=== PATIENT | female | born 1945 | race Caucasian/White ===

== ENCOUNTER 2016-11-01 00:54 | Emergency (ER) | payer MEDICARE, OTHER ==
[2016-11-01 01:01] VITALS: RESP 18
[2016-11-01] MEDS ORDERED: SODIUM CHLORIDE 0.9% 1,000 ML IV STA ×2 (01:19→03:03)
--- NOTE | 2016-11-01 01:21 | ED ---
General Adult HPI - General Chief complaint: Vaginal Bleeding Stated complaint: Vaginal Bleeding Time Seen by Provider: 11/01/16 01:05 Source: patient, RN notes reviewed Mode of arrival: ambulatory Limitations: no limitations - History of Present Illness Initial comments: Patient is a 71-year-old female who presents emergency room today with a chief complaint of vaginal bleeding over the last 4 days. She does admit that she's been having some light spotting. She states she's been changing 2 pads per day. States the bleeding is new she's not had any issues before. Patient admits that she was feeling lightheaded dizzy and is here recent for coming here tonight. Patient does admit to intermittent pain right side of the abdomen ever since having a tubal ligation approximate 40 years ago. Patient does admit that she's currently being treated for urinary tract infection. She states symptoms of itching and burning and dysuria have improved. Patient denies any other complaints or symptoms. Patient denies any recent fever, chills , shortness of breath, chest pain, back pain, nausea or vomiting, numbness or tingling, hematuria, constipation or diarrhea, headaches or visual changes, or any other complaints. - Related Data Home Medications Medication Instructions Recorded Confirmed Aspirin 325 mg PO Q72H 02/17/16 11/01/16 Aspirin EC [Ecotrin Low Dose] 81 mg PO DAILY 11/01/16 11/01/16 Nitrofurantoin Monohyd/M-Cryst 100 mg PO Q12HR 11/01/16 11/01/16 [Macrobid] Allergies Allergy/AdvReac Type Severity Reaction Status Date / Time lactose Allergy Unknown Verified 11/01/16 01:02 levofloxacin [From Levaquin] Allergy Unknown Verified 11/01/16 01:02 milk Allergy Unknown Verified 11/01/16 01:02 mold Allergy Unknown Verified 11/01/16 01:02 Penicillins Allergy Unknown Verified 11/01/16 01:02 soy Allergy Unknown Verified 11/01/16 01:02 sulfamethoxazole Allergy Unknown Verified 11/01/16 01:02 [From Bactrim] trimethoprim [From Bactrim] Allergy Unknown Verified 11/01/16 01:02 codeine AdvReac Unknown Verified 11/01/16 01:02 Review of Systems ROS Statement: Those systems with pertinent positive or pertinent negative responses have been documented in the HPI. ROS Other: All systems not noted in ROS Statement are negative. Past Medical History Past Medical History: Chest Pain / Angina Additional Past Medical History / Comment(s): angina History of Any Multi-Drug Resistant Organisms: None Reported Past Surgical History: Appendectomy, Section, Orthopedic Surgery, Tonsillectomy Additional Past Surgical History / Comment(s): cataract Past Psychological History: No Psychological Hx Reported Smoking Status: Never smoker Past Alcohol Use History: None Reported Past Drug Use History: None Reported General Exam - General Exam Comments Initial Comments: General: The patient is awake and alert, in no distress, and does not appear acutely ill. Eye: Pupils are equal, round and reactive to light, extra-ocular movements are intact. No nystagmus. There is normal conjunctiva bilaterally. No signs of icterus. Ears, nose, mouth and throat: There are moist mucous membranes and no oral lesions. Neck: The neck is supple, there is no tenderness or JVD. Cardiovascular: There is a regular rate and rhythm. No murmur, rub or gallop is appreciated. Respiratory: Lungs are clear to auscultation, respirations are non-labored, breath sounds are equal. No wheezes, stridor, rales, or rhonchi. Gastrointestinal: Soft, non-distended, non-tender abdomen without masses or organomegaly noted. There is no rebound or guarding present. No CVA tenderness. Bowel sounds are unremarkable. Musculoskeletal: Normal ROM, no tenderness. Strength 5/5. Sensation intact. Pulses equal bilaterally 2+. Neurological: A&O x 3. CN II-XII intact, There are no obvious motor or sensory deficits. Coordination appears grossly intact. Speech is normal. Skin: Skin is warm and dry and no rashes or lesions are noted. Psychiatric: Cooperative, appropriate mood & affect, normal judgment. Limitations: no limitations Course Vital Signs 11/01/16 11/01/16 00:58 02:42 Temperature 98 F 98.8 F Pulse Rate 88 77 Respiratory 18 18 Rate Blood Pressure 171/70 142/66 O2 Sat by Pulse 100 98 Oximetry Medical Decision Making - Medical Decision Making Patient's labs been reviewed. Patient's also does show mass versus fibroid. Case discussed with Dr Hartman. Results were discussed with patient. Patient feeling much better after fluids given here in the emergency room. Patient will be discharged home. She is advised to follow-up with the [facility] tomorrow. Advised return here to emergency room if any symptoms increase or worsen or for any other concerns. - Lab Data Result diagrams: 11/01/16 01:11/01/16 01:29 Lab Results 11/01/16 11/01/16 11/01/16 Range/Units 01: 01: 01:29 WBC 6.3 (3.8-10.6) k/uL RBC 4.00 (3.80-5.40) m/uL Hgb 14.0 (11.4-16.0) gm/dL Hct 38.6 (34.0-46.0) % MCV 96.3 (80.0-100.0) fL MCH 35.0 (25.0-35.0) pg MCHC 36.4 (31.0-37.0) g/dL RDW 13.1 (11.5-15.5) % Plt Count 229 (150-450) k/uL Neutrophils % 62 % Lymphocytes % 24 % Monocytes % 6 % Eosinophils % 3 % Basophils % 2 % Neutrophils # 3.9 (1.3-7.7) k/uL Lymphocytes # 1.5 (1.0-4.8) k/uL Monocytes # 0.4 (0-1.0) k/uL Eosinophils # 0.2 (0-0.7) k/uL Basophils # 0.1 (0-0.2) k/uL PT 10.4 (9.0-12.0) sec INR 1.0 (<1.1) APTT 26.0 (22.0-30.0) sec Sodium 125 L (137-145) mmol/L Potassium 4.3 (3.5-5.1) mmol/L Chloride 89 L (98-107) mmol/L Carbon Dioxide 27 (22-30) mmol/L Anion Gap 9 mmol/L BUN 17 (7-17) mg/dL Creatinine 0.80 (0.52-1.04) mg/dL Est GFR (MDRD) Af Amer >60 (>60 ml/min/1.73 sqM) Est GFR (MDRD) Non-Af >60 (>60 ml/min/1.73 sqM) Glucose 91 (74-99) mg/dL Calcium 9.6 (8.4-10.2) mg/dL Total Bilirubin 0.5 (0.2-1.3) mg/dL AST 38 H (14-36) U/L ALT 33 (9-52) U/L Alkaline Phosphatase 37 L (38-126) U/L Troponin I (0.000-0.034) ng/mL Total Protein 7.8 (6.3-8.2) g/dL Albumin 4.5 (3.5-5.0) g/dL Urine Color Urine Appearance (Clear) Urine pH (5.0-8.0) Ur Specific [place] (1.001-1.035) Urine Protein (Negative) Urine Glucose (UA) (Negative) Urine Ketones (Negative) Urine Blood (Negative) Urine Nitrite (Negative) Urine Bilirubin (Negative) Urine Urobilinogen (<2.0) mg/dL Ur Leukocyte Esterase (Negative) Urine RBC (0-5) /hpf Urine WBC (0-5) /hpf 11/01/16 11/01/16 Range/Units 01:29 01:29 WBC (3.8-10.6) k/uL RBC (3.80-5.40) m/uL Hgb (11.4-16.0) gm/dL Hct (34.0-46.0) % MCV (80.0-100.0) fL MCH (25.0-35.0) pg MCHC (31.0-37.0) g/dL RDW (11.5-15.5) % Plt Count (150-450) k/uL Neutrophils % % Lymphocytes % % Monocytes % % Eosinophils % % Basophils % % Neutrophils # (1.3-7.7) k/uL Lymphocytes # (1.0-4.8) k/uL Monocytes # (0-1.0) k/uL Eosinophils # (0-0.7) k/uL Basophils # (0-0.2) k/uL PT (9.0-12.0) sec INR (<1.1) APTT (22.0-30.0) sec Sodium (137-145) mmol/L Potassium (3.5-5.1) mmol/L Chloride (98-107) mmol/L Carbon Dioxide (22-30) mmol/L Anion Gap mmol/L BUN (7-17) mg/dL Creatinine (0.52-1.04) mg/dL Est GFR (MDRD) Af Amer (>60 ml/min/1.73 sqM) Est GFR (MDRD) Non-Af (>60 ml/min/1.73 sqM) Glucose (74-99) mg/dL Calcium (8.4-10.2) mg/dL Total Bilirubin (0.2-1.3) mg/dL AST (14-36) U/L ALT (9-52) U/L Alkaline Phosphatase (38-126) U/L Troponin I <0.012 (0.000-0.034) ng/mL Total Protein (6.3-8.2) g/dL Albumin (3.5-5.0) g/dL Urine Color Light Yellow Urine Appearance Clear (Clear) Urine pH 6.5 (5.0-8.0) Ur Specific [place] 1.001 (1.001-1.035) Urine Protein Negative (Negative) Urine Glucose (UA) Negative (Negative) Urine Ketones Negative (Negative) Urine Blood Moderate H (Negative) Urine Nitrite Negative (Negative) Urine Bilirubin Negative (Negative) Urine Urobilinogen <2.0 (<2.0) mg/dL Ur Leukocyte Esterase Negative (Negative) Urine RBC <1 (0-5) /hpf Urine WBC <1 (0-5) /hpf Disposition Clinical Impression: Vaginal bleeding Disposition: HOME SELF-CARE Condition: Stable Instructions: Dysfunctional Uterine Bleeding (ED) Additional Instructions: Please follow-up the family doctor or [facility] tomorrow. Please return to emergency room if any symptoms increase or worsen or for any other concerns. Referrals: Mekhi Ames MD [Primary Care Provider] - 1-2 days Claudine Navarro DO [Doctor of Osteopathic Medicine] - 1-2 days Time of Disposition: 03:04
[2016-11-01 01:48] LABS: Basophils # (A) 0.1 k/uL (0-0.2); Basophils % (A) 2 %; CH 33.1; CHCM 34.5; Eosinophils # (A) 0.2 k/uL (0-0.7); Eosinophils % (A) 3 %; HCT 38.6 % (34.0-46.0); HDW 2.08; Luc # (Auto) 0.16; Luc % (Auto) 3; Lymphocytes # (A) 1.5 k/uL (1.0-4.8); Lymphocytes % (A) 24 %; MCHC 36.4 g/dL (31.0-37.0); MCV 96.3 fL (80.0-100.0); Mean Platelet Volume 7.3; Monocytes # (A) 0.4 k/uL (0-1.0); Monocytes % (A) 6 %; Neutrophils # (A) 3.9 k/uL (1.3-7.7); Neutrophils % (A) 62 %; RDW 13.1 % (11.5-15.5); WBC 6.3 k/uL (3.8-10.6); WBC (Perox) 6.23
[2016-11-01 01:56] LABS: Appearance,Urine Clear (Clear); Bilirubin,Urine Negative (Negative); Glucose,Urine (UA) Negative (Negative); Ketones,Urine Negative (Negative); Leukocyte Esterase,Urine Negative (Negative); Nitrite,Urine Negative (Negative); PH, Urine 6.5 (5.0-8.0); Particle Count 271; Protein,Urine Negative (Negative); RBC,Urine <1 /hpf (0-5); Specific Gravity,Urine 1.001 (1.001-1.035); UA Billing (MACRO vs. MICRO) MICRO; Urobilinogen,Urine <2.0 mg/dL (<2.0); WBC,Urine <1 /hpf (0-5)
[2016-11-01 01:57] LABS: Prothrombin Time 10.4 sec (9.0-12.0)
[2016-11-01 02:05] LABS: ALT 33 U/L (9-52); AST 38 U/L (14-36); Alkaline Phosphatase 37 U/L (38-126); Anion Gap 9 mmol/L; Blood Urea Nitrogen 17 mg/dL (7-17); Calcium 9.6 mg/dL (8.4-10.2); Carbon Dioxide 27 mmol/L (22-30); Chloride 89 mmol/L (98-107); Glucose 91 mg/dL (74-99); Non-African American GFR(MDRD) >60 (>60 ml/min/1.73 sqM); Potassium 4.3 mmol/L (3.5-5.1); Sodium 125 mmol/L (137-145); Total Bilirubin 0.5 mg/dL (0.2-1.3); Total Protein 7.8 g/dL (6.3-8.2)
--- NOTE | 2016-11-01 02:48 | US ---
EXAM: US Pelvis, Transabdominal and Transvaginal CLINICAL HISTORY: Reason: bleeding TECHNIQUE: Real-time transabdominal and transvaginal pelvic ultrasound (complete) with image documentation. Transvaginal imaging was used for better evaluation of the endometrium and adnexa. COMPARISON: No relevant prior studies available. FINDINGS: Uterus/cervix: Uterus: 8.7 x 4.0 x 4.0 cm. Endometrial complex is not well visualized. There appears to be complex fluid distention of the endometrium cavity with thinning of the myometrium. Findings may represent an underlying endometrial process and/or cervical lesion. Focal more echogenic lesion is seen posteriorly measuring 1.9 x 1.2 x 1.5 cm which may represent an endometrial polyp, mass or fibroid. Right ovary: Not visualized. Left ovary: Not visualized. Free fluid: No free fluid. Bladder: Unremarkable. IMPRESSION: Endometrial complex is not well visualized. There appears to be complex fluid distention of the endometrium cavity with thinning of the myometrium. Findings may represent an underlying endometrial process and/or cervical lesion. Focal more echogenic lesion is seen posteriorly measuring 1.9 x 1.2 x 1.5 cm which may represent an endometrial polyp, mass or fibroid.
[2016-11-01 04:14] VITALS: BP 139/64; PULSE 78; TEMP 98
== END 2016-11-01 04:14 | disposition home or self-care (01) ==
LOC: EC 00:54
DX: N93.9 Abnormal uterine and vaginal bleeding, unspecified (principal); N39.0 Urinary tract infection, site not specified; R42 Dizziness and giddiness; R10.9 Unspecified abdominal pain; Z79.82 Long term (current) use of aspirin; Z88.0 Allergy status to penicillin; Z88.1 Allergy status to other antibiotic agents; Z88.2 Allergy status to sulfonamides; Z88.8 Allergy status to other drugs, medicaments and biological substances
CPT/HCPCS: 36415; 76830; 80053; 81001; 84484; 85025; 85610; 85730; 87086; 93005; 96360; 96361; 99284

== ENCOUNTER 2016-11-29 13:55 | Observation (INO) | payer MEDICARE, OTHER ==
[2016-11-29] MEDS ORDERED: ASPIRIN 81 MG CHEW PO STA (16:19)
[2016-11-29] MEDS ORDERED: NITROGLYCERIN OINT 1 INCH/GM PACKET TOPICAL STA (16:19)
--- NOTE | 2016-11-29 16:22 | ED ---
General Adult HPI - General Chief complaint: Chest Pain Stated complaint: Chest Pain Time Seen by Provider: 11/29/16 16:13 Source: patient, RN notes reviewed Mode of arrival: wheelchair Limitations: no limitations - History of Present Illness Initial comments: Patient is a pleasant 71-year-old female presenting to the emergency Department with chest discomfort. Symptoms have been intermittent over the past 3 weeks. Discomfort is currently resolved. Patient has pressure in her chest with some radiation, numbness to left arm. Symptoms are not necessarily exertional. Patient does have some associated nausea. No dyspnea or diaphoresis. Patient has had similar symptoms previously associated with cardiac problems. - Related Data Home Medications Medication Instructions Recorded Confirmed Aspirin EC [Ecotrin Low Dose] 81 mg PO DAILY 11/01/16 11/29/16 Calcium Carbonate [Calcium] 600 mg PO DAILY 11/29/16 11/29/16 Ferrous Sulfate [Slow Fe] 142 mg PO DAILY 11/29/16 11/29/16 Flaxseed Oil 1,000 mg PO DAILY 11/29/16 11/29/16 Magnesium 200 mg PO DAILY 11/29/16 11/29/16 Multivitamins, Thera [Multivitamin 1 tab PO DAILY 11/29/16 11/29/16 (formulary)] Vitamin B Complex 1 cap PO DAILY 11/29/16 11/29/16 Allergies Allergy/AdvReac Type Severity Reaction Status Date / Time latex Allergy Dyspnea/Itc Verified 11/29/16 16:04 rose mold Allergy Dyspnea/Rapid Verified 11/29/16 16:04 Heart Rate sulfamethoxazole Allergy Dyspnea Verified 11/29/16 16:04 [From Bactrim] trimethoprim [From Bactrim] Allergy Dyspnea Verified 11/29/16 16:04 amoxicillin [From Augmentin] AdvReac Dizziness Verified 11/29/16 16:04 ampicillin AdvReac Rapid Verified 11/29/16 16:04 Heart Rate casein AdvReac Vertigo/Ear Verified 11/29/16 16:04 Aches clavulanic acid AdvReac Dizziness Verified 11/29/16 16:04 [From Augmentin] codeine AdvReac Rapid Verified 11/29/16 16:04 Heart Rate/Migraine cortisone AdvReac Rapid Verified 11/29/16 16:04 Heart Rate/Migraine doxycycline AdvReac Rapid Verified 11/29/16 16:04 Heart Rate erythromycin base AdvReac Weakness Verified 11/29/16 16:04 lactose AdvReac Vertigo/Ear Verified 11/29/16 16:04 Aches levofloxacin [From Levaquin] AdvReac Hallucinati Verified 11/29/16 16:04 ons milk AdvReac Vertigo/Ear Verified 11/29/16 16:04 Aches naproxen [From Aleve] AdvReac Rapid Verified 11/29/16 16:04 Heart Rate Penicillins AdvReac Rapid Verified 11/29/16 16:04 Heart Rate soy AdvReac Diarrhea Verified 11/29/16 16:04 [id number] Reductase AdvReac Jaundice Verified 11/29/16 16:04 Inhibitor sulphites Allergy Dyspnea/Itc Uncoded 11/29/16 16:02 rose "Most Antibiotics" AdvReac Rapid Uncoded 11/29/16 16:02 Heart Rate Review of Systems ROS Statement: Those systems with pertinent positive or pertinent negative responses have been documented in the HPI. ROS Other: All systems not noted in ROS Statement are negative. Constitutional: Denies: fever Eyes: Denies: eye pain ENT: Denies: ear pain Respiratory: Denies: cough Cardiovascular: Reports: chest pain Endocrine: Denies: fatigue Gastrointestinal: Denies: abdominal pain Genitourinary: Denies: dysuria Musculoskeletal: Denies: back pain Skin: Denies: rash Past Medical History Past Medical History: Chest Pain / Angina Additional Past Medical History / Comment(s): angina History of Any Multi-Drug Resistant Organisms: None Reported Past Surgical History: Appendectomy, Section, Orthopedic Surgery, Tonsillectomy Additional Past Surgical History / Comment(s): cataract Past Psychological History: No Psychological Hx Reported Smoking Status: Never smoker Past Alcohol Use History: None Reported Past Drug Use History: None Reported General Exam Limitations: no limitations General appearance: alert, in no apparent distress Head exam: Present: atraumatic Eye exam: Present: normal appearance, PERRL ENT exam: Present: normal oropharynx Neck exam: Present: normal inspection Respiratory exam: Present: normal lung sounds bilaterally. Absent: chest wall tenderness Cardiovascular Exam: Present: regular rate, normal rhythm Expanded Peripheral pulses: 2+: Radial (R), Radial (L), Dorsalis Pedis (R), Dorsalis Pedis (L) GI/Abdominal exam: Present: soft. Absent: tenderness Extremities exam: Present: normal inspection Neurological exam: Present: alert Psychiatric exam: Present: normal affect, normal mood Skin exam: Absent: normal color Course Vital Signs 11/29/16 11/29/16 11/29/16 14:00 15:39 16:51 Temperature 97.5 F L Pulse Rate 81 79 84 Respiratory 18 18 18 Rate Blood Pressure 140/63 148/76 134/74 O2 Sat by Pulse 99 99 100 Oximetry 11/29/16 18:40 Temperature Pulse Rate 83 Respiratory 18 Rate Blood Pressure 153/70 O2 Sat by Pulse 99 Oximetry EKG Findings - EKG Comments: EKG Findings:: Normal sinus rhythm at 81. IN 166. QRS 96. QT 380. QTC 441. Normal axis. Incomplete right bundle-branch block. No acute ST change Medical Decision Making - Medical Decision Making Patient reevaluated and resting comfortably in bed. No pain. Patient updated on results and plan. Case was discussed in detail with Dr. Hill, who will admit for Dr. Ames. IV heparin started. Admission orders written. Consult placed for cardiology. - Lab Data Result diagrams: 11/29/16 15:40 11/29/16 15:40 Lab Results 11/29/16 11/29/16 11/29/16 Range/Units 15:40 15:40 15:40 WBC 8.7 (3.8-10.6) k/uL RBC 3.82 (3.80-5.40) m/uL Hgb 12.5 (11.4-16.0) gm/dL Hct 37.5 (34.0-46.0) % MCV 98.3 (80.0-100.0) fL MCH 32.7 (25.0-35.0) pg MCHC 33.3 (31.0-37.0) g/dL RDW 13.1 (11.5-15.5) % Plt Count 286 (150-450) k/uL Neutrophils % 73 % Lymphocytes % 18 % Monocytes % 6 % Eosinophils % 1 % Basophils % 0 % Neutrophils # 6.3 (1.3-7.7) k/uL Lymphocytes # 1.6 (1.0-4.8) k/uL Monocytes # 0.5 (0-1.0) k/uL Eosinophils # 0.1 (0-0.7) k/uL Basophils # 0.0 (0-0.2) k/uL PT (9.0-12.0) sec INR (<1.1) APTT (22.0-30.0) sec Sodium 126 L (137-145) mmol/L Potassium 4.0 (3.5-5.1) mmol/L Chloride 89 L (98-107) mmol/L Carbon Dioxide 26 (22-30) mmol/L Anion Gap 11 mmol/L BUN 13 (7-17) mg/dL Creatinine 0.62 (0.52-1.04) mg/dL Est GFR (MDRD) Af Amer >60 (>60 ml/min/1.73 sqM) Est GFR (MDRD) Non-Af >60 (>60 ml/min/1.73 sqM) Glucose 89 (74-99) mg/dL Calcium 9.1 (8.4-10.2) mg/dL Magnesium 2.0 (1.6-2.3) mg/dL Total Bilirubin 0.8 (0.2-1.3) mg/dL AST 47 H (14-36) U/L ALT 35 (9-52) U/L Alkaline Phosphatase 40 (38-126) U/L Total Creatine Kinase 38 (30-135) U/L CK-MB (CK-2) 2.0 (0.0-2.4) ng/mL CK-MB (CK-2) Rel Index 5.3 Troponin I <0.012 (0.000-0.034) ng/mL Total Protein 7.4 (6.3-8.2) g/dL Albumin 4.3 (3.5-5.0) g/dL Amylase 65 (30-110) U/L Lipase 107 (23-300) U/L 11/29/16 Range/Units 15:40 WBC (3.8-10.6) k/uL RBC (3.80-5.40) m/uL Hgb (11.4-16.0) gm/dL Hct (34.0-46.0) % MCV (80.0-100.0) fL MCH (25.0-35.0) pg MCHC (31.0-37.0) g/dL RDW (11.5-15.5) % Plt Count (150-450) k/uL Neutrophils % % Lymphocytes % % Monocytes % % Eosinophils % % Basophils % % Neutrophils # (1.3-7.7) k/uL Lymphocytes # (1.0-4.8) k/uL Monocytes # (0-1.0) k/uL Eosinophils # (0-0.7) k/uL Basophils # (0-0.2) k/uL PT 10.6 (9.0-12.0) sec INR 1.1 (<1.1) APTT 26.1 (22.0-30.0) sec Sodium (137-145) mmol/L Potassium (3.5-5.1) mmol/L Chloride (98-107) mmol/L Carbon Dioxide (22-30) mmol/L Anion Gap mmol/L BUN (7-17) mg/dL Creatinine (0.52-1.04) mg/dL Est GFR (MDRD) Af Amer (>60 ml/min/1.73 sqM) Est GFR (MDRD) Non-Af (>60 ml/min/1.73 sqM) Glucose (74-99) mg/dL Calcium (8.4-10.2) mg/dL Magnesium (1.6-2.3) mg/dL Total Bilirubin (0.2-1.3) mg/dL AST (14-36) U/L ALT (9-52) U/L Alkaline Phosphatase (38-126) U/L Total Creatine Kinase (30-135) U/L CK-MB (CK-2) (0.0-2.4) ng/mL CK-MB (CK-2) Rel Index Troponin I (0.000-0.034) ng/mL Total Protein (6.3-8.2) g/dL Albumin (3.5-5.0) g/dL Amylase (30-110) U/L Lipase (23-300) U/L - Radiology Data Radiology results: image reviewed (Chest x-ray shows no acute process) Critical Care Time Critical Care Time: Yes Total Critical Care Time: 33 Disposition Clinical Impression: Chest pain, Unstable angina pectoris Disposition: ADMITTED IP TO THIS [facility] Referrals: Mekhi Ames MD [Primary Care Provider] - 1-2 days
[2016-11-29 16:35] LABS: Basophils % (A) 0 %; CH 33.3; CHCM 34.1; Eosinophils # (A) 0.1 k/uL (0-0.7); Eosinophils % (A) 1 %; HCT 37.5 % (34.0-46.0); HDW 2.07; HGB 12.5 gm/dL (11.4-16.0); Luc # (Auto) 0.16; Luc % (Auto) 2; Lymphocytes # (A) 1.6 k/uL (1.0-4.8); Lymphocytes % (A) 18 %; MCH 32.7 pg (25.0-35.0); MCHC 33.3 g/dL (31.0-37.0); MCV 98.3 fL (80.0-100.0); Mean Platelet Volume 7.1; Monocytes # (A) 0.5 k/uL (0-1.0); Monocytes % (A) 6 %; Neutrophils # (A) 6.3 k/uL (1.3-7.7); Neutrophils % (A) 73 %; RBC 3.82 m/uL (3.80-5.40); RDW 13.1 % (11.5-15.5); WBC 8.7 k/uL (3.8-10.6); WBC (Perox) 9.63
[2016-11-29 16:43] LABS: INR 1.1 (<1.1); Partial Thromboplastin Time 26.1 sec (22.0-30.0); Prothrombin Time 10.6 sec (9.0-12.0)
[2016-11-29 16:49] LABS: ALT 35 U/L (9-52); AST 47 U/L (14-36); Alkaline Phosphatase 40 U/L (38-126); Amylase 65 U/L (30-110); Anion Gap 11 mmol/L; Blood Urea Nitrogen 13 mg/dL (7-17); Calcium 9.1 mg/dL (8.4-10.2); Carbon Dioxide 26 mmol/L (22-30); Chloride 89 mmol/L (98-107); Glucose 89 mg/dL (74-99); Non-African American GFR(MDRD) >60 (>60 ml/min/1.73 sqM); Sodium 126 mmol/L (137-145); Total Bilirubin 0.8 mg/dL (0.2-1.3); Total Protein 7.4 g/dL (6.3-8.2)
[2016-11-29 16:55] LABS: Creatine Kinase 38 U/L (30-135)
[2016-11-29 17:07] LABS: Troponin I <0.012 ng/mL (0.000-0.034)
--- NOTE | 2016-11-29 17:27 | XR ---
EXAMINATION TYPE: XR chest 2V DATE OF EXAM: 11/29/2016 5:12 PM COMPARISON: 02/17/2016 HISTORY: Chest pain TECHNIQUE: Frontal and lateral views of the chest are obtained. FINDINGS: Heart and mediastinum are normal. Lungs are clear. Diaphragm is normal. Bony thorax is int act. There is 10% loss of height of T11 vertebra. IMPRESSION: No cardiopulmonary disease. No change.
[2016-11-29] MEDS ORDERED: HEPARIN SODIUM,PORCINE 5,000 UNIT/ML 1 ML VIAL IV PRN (18:42)
[2016-11-29] MEDS ORDERED: HEPARIN SODIUM,PORCINE 5,000 UNIT/ML 1 ML VIAL IV ONE (18:42)
[2016-11-29] MEDS ORDERED: NITROGLYCERIN SL TABS 0.4 MG TAB SUBLINGUAL PRN (18:42)
[2016-11-29] MEDS ORDERED: HEPARIN SODIUM,PORCINE/D5W PMX 25,000 UNIT in DEXTROSE/WATER 1 500ML.BAG IV SCH (18:45)
[2016-11-29] MEDS ORDERED: SODIUM CHLORIDE 0.9% 1,000 ML IV SCH (18:45)
[2016-11-29 22:32] LABS: Creatine Kinase 31 U/L (30-135)
[2016-11-29 22:45] LABS: Creatine Kinase MB 1.5 ng/mL (0.0-2.4); Troponin I <0.012 ng/mL (0.000-0.034)
[2016-11-30] MEDS: NITROGLYCERIN OINT 1 INCH/GM PACKET TOPICAL SCH ×2 (03:20→06:02)
[2016-11-30 03:51] LABS: Basophils # (A) 0.1 k/uL (0-0.2); Basophils % (A) 1 %; CH 33.2; CHCM 35.2; Eosinophils # (A) 0.1 k/uL (0-0.7); Eosinophils % (A) 1 %; HCT 32.9 % (34.0-46.0); HGB 11.4 gm/dL (11.4-16.0); Luc # (Auto) 0.12; Luc % (Auto) 1; Lymphocytes # (A) 1.5 k/uL (1.0-4.8); Lymphocytes % (A) 12 %; MCH 32.9 pg (25.0-35.0); MCHC 34.7 g/dL (31.0-37.0); MCV 94.8 fL (80.0-100.0); Mean Platelet Volume 6.9; Monocytes # (A) 0.5 k/uL (0-1.0); Monocytes % (A) 4 %; Neutrophils # (A) 9.9 k/uL (1.3-7.7); Neutrophils % (A) 81 %; RBC 3.47 m/uL (3.80-5.40); RDW 12.8 % (11.5-15.5); WBC 12.2 k/uL (3.8-10.6); WBC (Perox) 12.62
[2016-11-30 04:01] LABS: Cholesterol 120 mg/dL (<200); HDL Cholesterol 53 mg/dL (40-60); Triglycerides 37 mg/dL (<150)
[2016-11-30 04:12] LABS: Creatine Kinase 27 U/L (30-135)
[2016-11-30 04:25] LABS: Creatine Kinase MB 1.1 ng/mL (0.0-2.4); Troponin I <0.012 ng/mL (0.000-0.034)
[2016-11-30 07:07] LABS: Anion Gap 8 mmol/L; Blood Urea Nitrogen 12 mg/dL (7-17); Calcium 8.8 mg/dL (8.4-10.2); Carbon Dioxide 24 mmol/L (22-30); Chloride 104 mmol/L (98-107); Glucose 87 mg/dL (74-99); Non-African American GFR(MDRD) >60 (>60 ml/min/1.73 sqM); Potassium 4.4 mmol/L (3.5-5.1); Sodium 136 mmol/L (137-145)
[2016-11-30] MEDS ORDERED: ASPIRIN 325 MG TAB PO SCH (09:00)
--- NOTE | 2016-11-30 10:18 | CONS ---
DATE OF CONSULTATION: A 71-year-old female patient of Dr. Mekhi Ames who saw Dr. Suarez in 2014 presenting with chest discomfort for the last several months. She complains of a stabbing discomfort in the left pectoral area off and on since November and did not see Dr. Suarez for an evaluation of this pain. She has also had tightness in the mid chest, which is actually what brought her into the hospital. The pain is quite severe and would not let up and therefore came to the hospital. Cardiac enzymes x3 are normal. Two serial ECGs are normal. She does report improvement with nitroglycerin. There is some numbness in the left arm. The symptoms are triggered by stress, not exertion. She did have some nausea, but no diaphoresis. No shortness of breath. Past history of coronary artery disease with documented ostial left circumflex stenosis, documented in 2008 by coronary angiography. Since then she has been on aspirin and has been intolerant of cholesterol pill. I am not sure which pill was prescribed but she states she became yellow with it, but I do not have the details. Her allergy list quite extensive (over a page long). It does state that she had jaundice with HMG-CoA reductase inhibitors. REVIEW OF SYSTEMS: No fever, chills, or rigors. No cough or expectoration. No nausea, vomiting, or diarrhea. No hematuria or dysuria. No strokes or seizures. No skin lesions. No musculoskeletal complaints. Past history of coronary artery disease, appendectomy, section, orthopedic, surgery, tonsillectomy. SOCIAL HISTORY: She is a never smoker and nondiabetic. On examination, her blood pressure upon admission was 140/63 mmHg. Her pulse rate in the 80s. Head and neck examination is normal. Heart sounds are normal. Lungs are clear to auscultation. Extremities are warm, no edema. She has no tenderness in the chest. A 12-lead ECG shows sinus rhythm with incomplete right bundle branch block without any ST-T abnormalities. Serial ECG was unchanged. Three set of cardiac enzymes are normal. The first sodium was 126 and the second one was normal at 136. IMPRESSION: 1. Midsternal tightness induced by stress with normal cardiac enzymes and ECG. 2. Intolerance to STATINS (jaundice). 3. It has been going on for several months. SUGGEST: A 2-D echo Doppler study today, stop heparin and IV fluids and patient should ambulate in the hallways. If she can walk at a good pace in the hallways without any chest discomfort, she could go home, but she needs to see Dr. Suarez on Friday or Friday and a stress test should be ordered.
[2016-11-30 12:09] VITALS: BP 106/49; PULSE 95; RESP 16; TEMP 98.5
--- NOTE | 2016-11-30 13:39 | ECHOF ---
Referral Reason:cp MEASUREMENTS -------- HEIGHT: 162.6 cm WEIGHT: 55.3 kg BP: 123/57 RVIDd: 2.7 cm (< 3.3) IVSd: 0.7 cm (0.6 - 1.1) LVIDd: 4.0 cm (3.9 - 5.3) LVPWd: 0.7 cm (0.6 - 1.1) IVSs: 1.4 cm LVIDs: 2.4 cm LVPWs: 1.3 cm LA Diam: 2.8 cm (2.7 - 3.8) LAESV Index (A-L): 11.50 ml/m Ao Diam: 2.8 cm (2.0 - 3.7) AV Cusp: 1.4 cm (1.5 - 2.6) MV EXCURSION: 15.879 mm (> 18.000) MV EF SLOPE: 48 mm/s (70 - 150) EPSS: 0.4 cm MV E Marcus: 0.70 m/s MV DecT: 310 ms MV A Marcus: 0.69 m/s MV E/A Ratio: 1.01 RAP: 5.00 mmHg RVSP: 22.27 mmHg FINDINGS -------- Sinus rhythm. This was a technically good study. The left ventricular size is normal. Left ventricular wall thickness is normal. Overall left ventricular systolic function is normal with, an EF between 60 - 65 %. The right ventricle is normal in size and function. Normal LA size by volume 22+/-6 ml/m2. The right atrium is normal in size. Aortic valve is trileaflet and is mildly thickened. The mitral valve leaflets are mildly thickened. There is trace mitral regurgitation. The tricuspid valve appears structurally normal. No regurgitation noted The pulmonic valve is normal. The aortic root size is normal. Normal inferior vena cava with normal inspiratory collapse consistent with estimated right atrial pressure of 5 mmHg. The pericardium is normal. CONCLUSIONS -------- 1. Sinus rhythm. 2. There is trace mitral regurgitation. 3. The aortic root size is normal. 4. Normal inferior vena cava with normal inspiratory collapse consistent with estimated right atrial pressure of 5 mmHg. 5. The pericardium is normal. 6. This was a technically good study. 7. The left ventricular size is normal. 8. Left ventricular wall thickness is normal. 9. Overall left ventricular systolic function is normal with, an EF between 60 - 65 %. 10. The right ventricle is normal in size and function. 11. Normal LA size by volume 22+/-6 ml/m2. 12. Aortic valve is trileaflet and is mildly thickened. 13. The mitral valve leaflets are mildly thickened. KNIFE EDGER: Marlene Santoyo RDCS
--- NOTE | 2016-11-30 17:47 | HP ---
DATE OF ADMISSION: 11/29/2016 HISTORY AND PHYSICAL EXAMINATION/DISCHARGE SUMMARY: Patient is a pleasant 71-year-old female who came in the Emergency Room Department with complaints of chest pressure-like sensation in the retrosternal area associated with stress and anxiety. Patient did not tolerate Ativan or any antidepressants in the past very well. Patient's chest pain is not associated with shortness of breath. Denied any association with food. Denied any lightheadedness. Patient chest pain can last from minutes to hours and improves when she takes deep breaths and relaxes. Patient denied any diaphoresis. Patient denied any nausea, vomiting and the patient denied any fevers. All the work-up is negative. Patient was cleared by cardiology. Cardiology will follow her as an outpatient. Ruled out acute coronary syndrome. Echocardiogram was done which was negative. Patient's chest pain is most related to anxiety disorder. Patient was recently diagnosed with endometritis with precancerous cell type on the endometrial biopsy. Since then, patient was having these episodes of anxiety. Patient is supposed to get a hysterectomy as an outpatient. 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 I detailed that this is not actually a cancer, which can be easily treated. REVIEW OF SYSTEMS: CONSTITUTIONAL: No fever, no malaise, no fatigue. HEENT: No recent visual problems or hearing problems. Denied any sore throat. CARDIOVASCULAR: As described in history of present illness. PULMONARY: No shortness of breath, no cough, no hemoptysis. GASTROINTESTINAL: No diarrhea, no nausea, no vomiting, no abdominal pain. Normoactive bowel sounds. NEUROLOGICAL: No headaches, no weakness, no numbness. HEMATOLOGICAL: Denies any bleeding or petechiae. GENITOURINARY: Denies any burning micturition, frequency, or urgency. MUSCULOSKELETAL/RHEUMATOLOGICAL: Denies any joint pain, swelling, or any muscle pain. ENDOCRINE: Denies any polyuria or polydipsia. The rest of the 14 point review of systems is negative. Patient had a vaginal bleed secondary to heparin, which was discontinued which is improving at this point of time and secondary reactive to that vaginal bleed, patient had leukocytosis without any signs or symptoms of infection. Home medications include: 1. Aspirin. 2. Calcium carbonate. 3. Ferrous sulfate. 4. Flaccid. 5. Magnesium. 6. Multivitamin. 7. Vitamin B complex. ALLERGIES: MULTIPLE ALLERGIES. PLEASE REFER TO THE CHART. Past medical history of chest pain and angina in the past. Endometrial bleeding with precancerous endometritis, appendectomy, section, orthopedic surgery, tonsillectomy in the past. SOCIAL HISTORY: Denied any smoking, alcohol abuse or drug abuse. FAMILY HISTORY: Denied any family history of premature coronary artery disease. Family history significant for congestive heart failure and cervical cancer in grandmother. PHYSICAL EXAMINATION: VITAL SIGNS: Temperature 98.4, pulse of 95 respiratory rate of 16, blood pressure 123/57, saturating at 97% on room air. GENERAL: The patient is alert and oriented x3, not in any acute distress. Well developed, well nourished. HEENT: Pupils are round and equally reacting to light. EOMI. No scleral icterus. No conjunctival pallor. Normocephalic, atraumatic. No pharyngeal erythema. No thyromegaly. CARDIOVASCULAR: S1 and S2 present. No murmurs, rubs, or gallops. PULMONARY: Chest is clear to auscultation, no wheezing or crackles. ABDOMEN: Soft, nontender, nondistended, normoactive bowel sounds. No palpable organomegaly. MUSCULOSKELETAL: No joint swelling or deformity. EXTREMITIES: No cyanosis, clubbing, or pedal edema. NEUROLOGICAL: Gross neurological examination did not reveal any focal deficits. SKIN: No rashes. LABORATORY DATA: CBC, CMP are abnormal for elevated WBC count 1200. Chest x-ray did not show any significant abnormality. ASSESSMENT AND PLAN: 1. Chest pain related to anxiety. Ruled out acute coronary syndrome. Unstable angina. Echocardiogram essentially within normal limits. Follow-up with Dr. Grider on Friday. 2. Vaginal bleeding secondary to endometritis and precancerous lesion. 3. Anxiety disorder. PLAN: As mentioned in the interval history. Discharge diet is Regular. Activity as tolerated. Follow with primary care physician, Dr. Mekhi Ames in about 3 to 7 days. Follow up with Dr. Grider as mentioned above and to follow up with Dr. Thurman STEEPLECHASE JOCKEY as mentioned above. This dictation is both H&P and discharge summary.
== END 2016-11-30 14:30 | disposition home or self-care (01) ==
LOC: EC 13:55 → 3OBS 18:42
PROVIDERS: ADMIT Internal Medicine; ATTEND Internal Medicine
DX: I25.110 Atherosclerotic heart disease of native coronary artery with unstable angina pectoris (principal); R07.89 Other chest pain; R20.0 Anesthesia of skin; I45.10 Unspecified right bundle-branch block; F41.9 Anxiety disorder, unspecified; R11.0 Nausea; N71.9 Inflammatory disease of uterus, unspecified; Z79.899 Other long term (current) drug therapy; Z79.82 Long term (current) use of aspirin; Z88.6 Allergy status to analgesic agent; Z88.1 Allergy status to other antibiotic agents; Z88.3 Allergy status to other anti-infective agents; Z91.040 Latex allergy status; Z91.011 Allergy to milk products; Z88.5 Allergy status to narcotic agent; Z88.0 Allergy status to penicillin; Z88.2 Allergy status to sulfonamides; Z88.8 Allergy status to other drugs, medicaments and biological substances; Z91.018 Allergy to other foods; Z91.09 Other allergy status, other than to drugs and biological substances
CPT/HCPCS: 96365; 96366 ×2; 96376; 99291; 99292; 36415; 94760; 93306; 80061; 80053; 80048; 82150; 82550 ×2; 82553 ×2; 83690; 83735; 84484 ×2; 85025 ×2; 85610; 85730; 71020; G0378 ×2; J1644 ×2; 93005

== ENCOUNTER → 2016-12-23 | Outpatient (CLI) | payer MEDICARE, OTHER ==
[2016-12-23 15:23] LABS: Basophils # (A) 0.1 k/uL (0-0.2); Basophils % (A) 1 %; CH 32.7; Eosinophils # (A) 0.1 k/uL (0-0.7); Eosinophils % (A) 1 %; HCT 35.6 % (34.0-46.0); HDW 2.12; HGB 11.7 gm/dL (11.4-16.0); Luc # (Auto) 0.19; Luc % (Auto) 2; Lymphocytes # (A) 2.3 k/uL (1.0-4.8); Lymphocytes % (A) 27 %; MCH 32.7 pg (25.0-35.0); MCHC 32.8 g/dL (31.0-37.0); Mean Platelet Volume 8.9; Monocytes # (A) 0.3 k/uL (0-1.0); Monocytes % (A) 4 %; Neutrophils # (A) 5.6 k/uL (1.3-7.7); Neutrophils % (A) 65 %; RBC 3.57 m/uL (3.80-5.40); RDW 13.8 % (11.5-15.5); WBC 8.6 k/uL (3.8-10.6); WBC (Perox) 8.55
[2016-12-23 15:27] LABS: MCV 99.8 fL (80.0-100.0)
== END | disposition home or self-care (01) ==
LOC: LABPAT 15:10
PROVIDERS: ATTEND Obstetrics & Gynecology
DX: Z01.812 Encounter for preprocedural laboratory examination (principal); N95.0 Postmenopausal bleeding; N81.9 Female genital prolapse, unspecified
CPT/HCPCS: 85025

== ENCOUNTER 2016-12-31 09:14 | Day surgery (SDC) | payer MEDICARE, OTHER ==
[2016-12-26 11:02] VITALS: BMI 20.5
--- NOTE | 2016-12-30 20:20 | HP ---
DATE OF ADMISSION: This is a 71-year-old female who presented with a history of many months of bright red vaginal bleeding. Patient was seen in the office and evaluated, at which time an endometrial biopsy was performed. 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 In addition, her PAP smear revealed high-grade BRET. The patient therefore is in need of colposcopy, directed biopsies, endocervical curettage, hysteroscopy and D&C. I have reviewed this with her in detail. Preoperative clearance has been given by what job titles mean, Dr. Grider. Patient has continued to have a light vaginal bleeding on and off she was last seen in the office in November. PAST MEDICAL HISTORY: Significant for angina, history of kidney infection, and history of colon polyps. PAST SURGICAL HISTORY: Appendectomy in 1961, left knee arthroscopy 2010, tonsillectomy in the , right wrist surgery 1998. CURRENT MEDICATIONS: Atorvastatin 20 mg daily as given recently per Dr. Grider. ALLERGIES INCLUDE MULTIPLE ALLERGIES, REACTIONS ARE UNKNOWN TO ME. ALLERGIES INCLUDE ALEVE, AMPICILLIN, AUGMENTIN, BACTRIM DS, CORTISONE, DOXYCYCLINE, ERYTHROMYCIN, LACTULOSE, LATEX, LEVAQUIN, MILK, MOLDS, ALL PENICILLINS, AND SULFA DRUGS, WELL THE PATIENT REPORTS THAT STATINS. Past family history is significant for her grandmother having cervical cancer, father and mother and brother all having heart disease, and aunt having pancreatic cancer. Reproductive history is significant for 3 sections 1961, 1969 and 1972. SOCIAL HISTORY: The patient is a former smoker, she does not drink caffeine, she denies any alcohol or drug use currently. She is and retired. Review of systems is otherwise negative. On exam, this is a pleasant, elderly female, she is 5 feet 3-1/2 inches, 122 pounds, BMI is 21. Blood pressure today is 128/66. HEENT exam reveals no thyromegaly, no cervical lymphadenopathy, trachea midline, dentition good. Breasts are bilaterally symmetric and atrophic, no skin dimpling, nipple discharge, axillary adenopathy or discernible lesions or masses. Cardiac exam reveals regular rate and rhythm without murmur, click or rub. Chest is clear to auscultation in all napoles. ABDOMEN: Soft, nontender, no obvious organosplenomegaly, active bowel sounds. Extremities reveal good peripheral pulses, no peripheral edema, good range of motion. On genitourinary examination, the external genitalia is somewhat atrophic to inspection, there is no obvious cystocele or rectocele. There is an amount of dark red vaginal bleeding in the vaginal vault. The adnexa are small, nontender, mobile, rectal exam reveals good sphincter tone, Fit is unable to be performed secondary to contamination from vaginal blood. No obvious rectal masses are noted. IMPRESSION: Postmenopausal bleeding, endometrial biopsy consistent with at least severe dysplasia. Abnormal Pap smear also revealing high-grade change. PLAN: As noted above, we will proceed with colposcopy of the cervix, and directed biopsies as appropriate. We will perform endocervical curettage. We will also perform hysteroscopy and D&C. I have reviewed with the patient the risks, benefits, and alternatives of this plan. All risks of aspiration, nerve damage or even from anesthesia have been reviewed. A second opinion has been offered and declined. Preoperative clearance as noted has been given per Dr. Grider. We will proceed with surgery as above.
[~2016-12-31 09:14] MED LIST: LACTATED RINGERS 1,000 ML IV SCH; MIDAZOLAM 2 MG/2 ML VIAL IV PRN; ONDANSETRON 4 MG/2 ML VIAL IVP ONE; Pre Op ABX Message 1 EACH MISC MISCELLANE ONE
[2016-12-31] MEDS ORDERED: LIDOCAINE 1% 20 ML VIAL (10MG/ML) FOR IV START SQ ONE (09:52)
[2016-12-31] MEDS ORDERED: fentaNYL (PF) 50 MCG/ML 2 ML AMP ONE (10:09)
[2016-12-31] MEDS ORDERED: MIDAZOLAM 2 MG/2 ML VIAL ONE (10:09)
[2016-12-31] MEDS ORDERED: ACETAMINOPHEN IV (For NPO) 1,000 MG/100 ML VIAL ONE (10:09)
[2016-12-31] MEDS ORDERED: LIDOCAINE 1% INJ 10MG/ML (20 ML MDV) ONE (10:09)
[2016-12-31] MEDS ORDERED: PROPOFOL 10 MG/ML 20 ML VIAL IV ONE (10:09)
[2016-12-31] MEDS ORDERED: IODINE/POTASS IOD (LUGOLS) BTL TOPICAL ONE (10:35)
[2016-12-31] MEDS ORDERED: ACETIC ACID 15 DROPS/ML DROPS MISCELLANE ONE (10:36)
[2016-12-31] MEDS ORDERED: FERRIC SUBSULFATE (MONSELS) JAR TOPICAL ONE (10:45)
--- NOTE | 2016-12-31 11:05 | P.OP ---
Date of Procedure: 12/31/16 Preoperative Diagnosis: High-grade BRET on Pap smear, at least severe dysplasia per endometrial biopsy, postmenopausal bleeding Postoperative Diagnosis: Pathology pending Procedure(s) Performed: Otoscopy with directed biopsies, endocervical curettage, hysteroscopy, D&C. Implants: Anesthesia: GETA Surgeon: Zoila Thurman Mini Shifter #1: Stated None Estimated Blood Loss (ml): 100 IV fluids (ml): 400 Urine output (ml): 100 Pathology: other (Cervical biopsy at 6:00, 12:00, ECC, uterine curettings) Condition: stable Disposition: PACU Indications for Procedure: Operative Findings: Description of Procedure: Patient is brought to the operating suite. She's placed in the dorsal lithotomy position after general anesthetic is given. The appropriate timeout is performed to assure the proper patient and procedural identification. Bimanual examination is performed, and bright red blood is noted on the examination glove. The cervix appears small and mobile, the uterus is quite enlarged bulky and firm, suspicious for cancer. The bladder is drained for 100 mL of clear yellow urine. The bivalve speculum was placed into the vagina. The cervix is quite bloody to inspection. Acetoacetic acid is used to raise the cervix. The colposcope was then used. The field is to hemorrhagic to ascertain any certain cervical anomalies. Therefore a cervical biopsy is done at 12:00, and is another one at 6:00, and sent to pathology under separate cover. An endocervical curettage was then performed using a Kevorkian curette. The uterus sounds to a depth of 7-8 cm in the anteverted position. The cervix was gently and systematically dilated with Hanks dilators. Hysteroscope was placed and fluid is infused. The cavity appears shaggy, irregular, no obvious polyps fibroids or lesions are noted. Hysteroscope was removed. At this time the uterus is gently and systematically curettaged for a large amount of necrotic appearing tissue, very suspicious for endometrial cancer. When this is complete, Monsel solution is used on the cervix to attempt hemostasis. An electrocautery ball is also used with a power of 35 W to attempt to obtain adequate hemostasis. No active bleeding is noted at the end of the procedure, however there is still an amount of bright red small vaginal bleeding as per trickle. A. Pattern is placed. All sponge needle and enhancement counts are correct at the end of our procedure. Patient is brought back to recovery room in stable condition with a blood pressure 137/71, pulse 72, 98% O2 saturation. She will follow-up in the office with me in 2 weeks. Offirmev is given intravenously to aid in postoperative pain control.
[2016-12-31 11:16] VITALS: TEMP 98.4
[2016-12-31] MEDS: HYDROmorphone 1 MG/ML 1 ML SYRINGE IVP PRN ×4 (11:22→11:53)
[2016-12-31 11:24] VITALS: RESP 18
[2016-12-31] MEDS ORDERED: LACTATED RINGERS 1,000 ML IV ONE (11:47)
[2016-12-31 12:56] VITALS: BP 134/67; PULSE 66
== END 2016-12-31 13:37 | disposition home or self-care (01) ==
LOC: OR 09:14
PROVIDERS: ATTEND Obstetrics & Gynecology
DX: C53.0 Malignant neoplasm of endocervix (principal); C54.1 Malignant neoplasm of endometrium; D06.7 Carcinoma in situ of other parts of cervix; N95.0 Postmenopausal bleeding; Z80.49 Family history of malignant neoplasm of other genital organs; Z79.82 Long term (current) use of aspirin; Z79.899 Other long term (current) drug therapy; Z88.0 Allergy status to penicillin; Z88.2 Allergy status to sulfonamides; Z88.8 Allergy status to other drugs, medicaments and biological substances; Z88.6 Allergy status to analgesic agent; Z88.1 Allergy status to other antibiotic agents; Z91.040 Latex allergy status; Z91.011 Allergy to milk products; Z87.891 Personal history of nicotine dependence
CPT/HCPCS: 88305; 57454; 58558; J2250; J2405; J2001; J3010; J1170; J0131; J2704

== ENCOUNTER 2017-03-26 08:01 | Emergency (ER) | payer MEDICARE, OTHER ==
[2017-03-26] MEDS ORDERED: SODIUM CHLORIDE 0.9% 1,000 ML IV STA (08:28)
--- NOTE | 2017-03-26 08:30 | ED ---
General Adult HPI - General Chief complaint: Recheck/Abnormal Lab/Rx Stated complaint: MEDICATION REACTION Time Seen by Provider: 03/26/17 08:20 Source: patient, EMS, RN notes reviewed Mode of arrival: EMS Limitations: no limitations - History of Present Illness Initial comments: 71-year-old female presenting with chief complaint of generalized weakness and fatigue. Patient recently started on chemotherapy as well as radiation for cervical cancer. Most recent chemotherapy treatment was Friday of this week. Patient states yesterday she was unable units secondary to nausea. She had no vomiting. Had a bowel movement later in the afternoon followed by one episode of diarrhea. She has no abdominal pain. No cough. No dysuria. No fever. No rash. No headache. Patient's nausea is completely resolved. Chief complaint is fatigue and generalized weakness. - Related Data Home Medications Medication Instructions Recorded Confirmed Calcium Carbonate [Tums] 500 mg PO QID PRN 03/26/17 03/26/17 Allergies Allergy/AdvReac Type Severity Reaction Status Date / Time latex Allergy Dyspnea/Itc Verified 03/26/17 08:35 rose mold Allergy Dyspnea/Rapid Verified 03/26/17 08:35 Heart Rate sulfamethoxazole Allergy Dyspnea Verified 03/26/17 08:35 [From Bactrim] trimethoprim [From Bactrim] Allergy Dyspnea Verified 03/26/17 08:35 amoxicillin [From Augmentin] AdvReac Dizziness Verified 03/26/17 08:35 ampicillin AdvReac Rapid Verified 03/26/17 08:35 Heart Rate casein AdvReac Vertigo/Ear Verified 03/26/17 08:35 Aches clavulanic acid AdvReac Dizziness Verified 03/26/17 08:35 [From Augmentin] codeine AdvReac Rapid Verified 03/26/17 08:35 Heart Rate/Migraine cortisone AdvReac Rapid Verified 03/26/17 08:35 Heart Rate/Migraine doxycycline AdvReac Rapid Verified 03/26/17 08:35 Heart Rate lactose AdvReac Vertigo/Ear Verified 03/26/17 08:35 Aches levofloxacin [From Levaquin] AdvReac Hallucinati Verified 03/26/17 08:35 ons milk AdvReac Vertigo/Ear Verified 03/26/17 08:35 Aches naproxen [From Aleve] AdvReac Rapid Verified 03/26/17 08:35 Heart Rate Penicillins AdvReac Rapid Verified 03/26/17 08:35 Heart Rate soy AdvReac Diarrhea Verified 03/26/17 08:35 Vcmeomm-[id number]-Vgk Reductase AdvReac Jaundice Verified 03/26/17 08:35 Inhibitor sulphites Allergy Dyspnea/Itc Uncoded 12/31/16 09:36 rose "Most Antibiotics" AdvReac Rapid Uncoded 12/31/16 09:36 Heart Rate Review of Systems ROS Statement: Those systems with pertinent positive or pertinent negative responses have been documented in the HPI. ROS Other: All systems not noted in ROS Statement are negative. Past Medical History Past Medical History: Cancer, Chest Pain / Angina Additional Past Medical History / Comment(s): angina, murmur,skin cancer, palpitations, vertigo, anemia- iron supplents, skin cancer, ibs, since 10-31-[address] care History of Any Multi-Drug Resistant Organisms: None Reported Past Surgical History: Appendectomy, Section, Heart Catheterization, Orthopedic Surgery, Tonsillectomy Additional Past Surgical History / Comment(s): cataract implants, colonoscopy/ polypectomy-benign,lt knee arthroscopy Past Anesthesia/Blood Transfusion Reactions: No Reported Reaction Additional Past Anesthesia/Blood Transfusion Reaction / Comment(s): clausterphobia Past Psychological History: No Psychological Hx Reported Smoking Status: Former smoker Past Alcohol Use History: None Reported Past Drug Use History: None Reported - Past Family History Father Family Medical History: Congestive Heart Failure (CHF) Mother Family Medical History: CVA/TIA Additional Family Medical History / Comment(s): grandmother has cervical cancer General Exam Limitations: no limitations General appearance: alert, in no apparent distress Head exam: Present: atraumatic, normocephalic Eye exam: Present: normal appearance, PERRL ENT exam: Present: mucous membranes dry Neck exam: Present: normal inspection. Absent: tenderness, meningismus Respiratory exam: Present: normal lung sounds bilaterally. Absent: respiratory distress Cardiovascular Exam: Present: regular rate, normal rhythm GI/Abdominal exam: Present: soft. Absent: distended, tenderness, guarding, rebound Extremities exam: Present: normal inspection, full ROM, normal capillary refill. Absent: pedal edema Neurological exam: Present: alert, oriented X3, CN II-XII intact. Absent: motor sensory deficit Psychiatric exam: Present: normal affect, normal mood Skin exam: Present: warm, dry, intact. Absent: cyanosis, diaphoretic Course Vital Signs 03/26/17 03/26/17 03/26/17 08:05 09:03 09:34 Temperature 98.4 F Pulse Rate 78 66 69 Respiratory 18 20 18 Rate Blood Pressure 144/67 175/94 140/63 O2 Sat by Pulse 100 94 L 100 Oximetry 03/26/17 10:18 Temperature 97.8 F Pulse Rate 72 Respiratory 18 Rate Blood Pressure 133/62 O2 Sat by Pulse 100 Oximetry - Reevaluation(s) Reevaluation #1: 03/26/17 10:41 On reevaluation patient is feeling better. She has eaten a sandwich and had a glass of water. EKG Findings - EKG Comments: EKG Findings:: EKG shows sinus rhythm, ventricular 73, LA 150, QS duration 88, QTC 427, no ST segment elevation or depression, no T-wave abnormality Medical Decision Making - Medical Decision Making 71-year-old female presenting with generalized weakness and fatigue status post chemotherapy. Patient did not eat or drink yesterday secondary nausea. Patient 's nausea had resolved at the time of her arrival. Laboratory studies were obtained including a CBC, CMP, and urinalysis. This was remarkable only for mild hyponatremia at 1:30. Patient receives IV hydration. She's had a sandwich and had some water to drink. She has no nausea. She has appointments after noon for radiation which she would like to maintain. She'll be discharged home, instructed to continue the drink as tolerated. Return to emergency department with worsening symptoms. Diagnosis: Chemotherapy-induced nausea, dehydration - Lab Data Result diagrams: 03/26/17 08:16 03/26/17 08:16 Lab Results 03/26/17 03/26/17 03/26/17 Range/Units 08:16 08:16 09:19 WBC 9.0 (3.8-10.6) k/uL RBC 3.72 L (3.80-5.40) m/uL Hgb 11.9 (11.4-16.0) gm/dL Hct 35.1 (34.0-46.0) % MCV 94.3 (80.0-100.0) fL MCH 32.0 (25.0-35.0) pg MCHC 33.9 (31.0-37.0) g/dL RDW 13.8 (11.5-15.5) % Plt Count 265 (150-450) k/uL Neutrophils % 78 % Lymphocytes % 17 % Monocytes % 4 % Eosinophils % 1 % Basophils % 0 % Neutrophils # 7.0 (1.3-7.7) k/uL Lymphocytes # 1.5 (1.0-4.8) k/uL Monocytes # 0.4 (0-1.0) k/uL Eosinophils # 0.1 (0-0.7) k/uL Basophils # 0.0 (0-0.2) k/uL Sodium 130 L (137-145) mmol/L Potassium 3.9 (3.5-5.1) mmol/L Chloride 96 L (98-107) mmol/L Carbon Dioxide 25 (22-30) mmol/L Anion Gap 9 mmol/L BUN 11 (7-17) mg/dL Creatinine 0.68 (0.52-1.04) mg/dL Est GFR (MDRD) Af Amer >60 (>60 ml/min/1.73 sqM) Est GFR (MDRD) Non-Af >60 (>60 ml/min/1.73 sqM) Glucose 81 (74-99) mg/dL Calcium 9.2 (8.4-10.2) mg/dL Magnesium 1.9 (1.6-2.3) mg/dL Total Bilirubin 0.7 (0.2-1.3) mg/dL AST 26 (14-36) U/L ALT 33 (9-52) U/L Alkaline Phosphatase 43 (38-126) U/L Total Protein 6.7 (6.3-8.2) g/dL Albumin 3.8 (3.5-5.0) g/dL Urine Color Colorless Urine Appearance Clear (Clear) Urine pH 7.5 (5.0-8.0) Ur Specific Hume 1.003 (1.001-1.035) Urine Protein Negative (Negative) Urine Glucose (UA) Negative (Negative) Urine Ketones Negative (Negative) Urine Blood Negative (Negative) Urine Nitrite Negative (Negative) Urine Bilirubin Negative (Negative) Urine Urobilinogen <2.0 (<2.0) mg/dL Ur Leukocyte Esterase Trace H (Negative) Urine WBC 3 (0-5) /hpf Disposition Clinical Impression: Chemotherapy-induced nausea, Dehydration Disposition: HOME SELF-CARE Condition: Good Instructions: Acute Nausea and Vomiting (ED), Chemo Induced Nausea and Vomiting (ED) Referrals: Julissa Burt MD [Primary Care Provider] - 1-2 days German Bryant MD [STAFF PHYSICIAN] - 1-2 days Time of Disposition: 10:43
[2017-03-26 08:40] LABS: Basophils % (A) 0 %; CH 32.8; CHCM 34.9; Eosinophils # (A) 0.1 k/uL (0-0.7); Eosinophils % (A) 1 %; HCT 35.1 % (34.0-46.0); HGB 11.9 gm/dL (11.4-16.0); Luc # (Auto) 0.06; Luc % (Auto) 1; Lymphocytes # (A) 1.5 k/uL (1.0-4.8); Lymphocytes % (A) 17 %; MCHC 33.9 g/dL (31.0-37.0); MCV 94.3 fL (80.0-100.0); Mean Platelet Volume 7.8; Monocytes # (A) 0.4 k/uL (0-1.0); Monocytes % (A) 4 %; Neutrophils % (A) 78 %; RBC 3.72 m/uL (3.80-5.40); RDW 13.8 % (11.5-15.5); WBC (Perox) 9.33
[2017-03-26 08:52] LABS: ALT 33 U/L (9-52); AST 26 U/L (14-36); Alkaline Phosphatase 43 U/L (38-126); Anion Gap 9 mmol/L; Blood Urea Nitrogen 11 mg/dL (7-17); Calcium 9.2 mg/dL (8.4-10.2); Carbon Dioxide 25 mmol/L (22-30); Chloride 96 mmol/L (98-107); Glucose 81 mg/dL (74-99); Magnesium 1.9 mg/dL (1.6-2.3); Non-African American GFR(MDRD) >60 (>60 ml/min/1.73 sqM); Potassium 3.9 mmol/L (3.5-5.1); Sodium 130 mmol/L (137-145); Total Bilirubin 0.7 mg/dL (0.2-1.3); Total Protein 6.7 g/dL (6.3-8.2)
[2017-03-26 09:40] LABS: Appearance,Urine Clear (Clear); Bilirubin,Urine Negative (Negative); Glucose,Urine (UA) Negative (Negative); Ketones,Urine Negative (Negative); Leukocyte Esterase,Urine Trace (Negative); Nitrite,Urine Negative (Negative); PH, Urine 7.5 (5.0-8.0); Particle Count 2195; Protein,Urine Negative (Negative); Specific Gravity,Urine 1.003 (1.001-1.035); UA Billing (MACRO vs. MICRO) MICRO; Urobilinogen,Urine <2.0 mg/dL (<2.0); WBC,Urine 3 /hpf (0-5)
--- NOTE | 2017-03-26 09:52 | XR ---
EXAMINATION TYPE: XR chest 2V DATE OF EXAM: 03/26/2017 COMPARISON: 11/29/2016 HISTORY: Shortness of breath TECHNIQUE: Frontal and lateral views of the chest are obtained. FINDINGS: Scattered senescent parenchymal changes noted. Hyperinflation compatible with COPD. No evidence for infiltrate. No evidence for atelectasis. Heart size is stable. Mediastinal structures are stable and grossly unremarkable. No evidence for hilar prominence. Degenerative changes dorsal spine. IMPRESSION: 1. No evidence for acute pulmonary disease.
[2017-03-26 10:52] VITALS: BP 111/69; PULSE 74; RESP 16; TEMP 97.7
== END 2017-03-26 11:01 | disposition home or self-care (01) ==
LOC: EC 08:01
DX: E86.0 Dehydration (principal); R11.0 Nausea; T45.1X5A Adverse effect of antineoplastic and immunosuppressive drugs, initial encounter; Z85.828 Personal history of other malignant neoplasm of skin; Z85.89 Personal history of malignant neoplasm of other organs and systems; Z87.891 Personal history of nicotine dependence; Z91.040 Latex allergy status; Z91.048 Other nonmedicinal substance allergy status; Z91.011 Allergy to milk products; Z88.0 Allergy status to penicillin; Z88.1 Allergy status to other antibiotic agents; Z88.2 Allergy status to sulfonamides; Z88.6 Allergy status to analgesic agent; Z91.018 Allergy to other foods; Z88.8 Allergy status to other drugs, medicaments and biological substances
CPT/HCPCS: 36415; 71020; 80053; 81001; 83735; 85025; 93005; 96360; 96361; 99284

== ENCOUNTER 2017-03-28 11:43 | Emergency (ER) | payer MEDICARE, OTHER ==
[2017-03-28] MEDS ORDERED: SODIUM CHLORIDE 0.9% 1,000 ML IV STA (12:10)
--- NOTE | 2017-03-28 12:13 | ED ---
General Adult HPI - General Chief complaint: Recheck/Abnormal Lab/Rx Stated complaint: reaction to chemo tx Time Seen by Provider: 03/28/17 11:58 Source: patient, RN notes reviewed Mode of arrival: wheelchair Limitations: no limitations - History of Present Illness Initial comments: Patient is a pleasant 71-year-old female presenting to the emergency Department with shaking. Onset of symptoms was a couple of days ago after starting chemotherapy. Patient received chemotherapy for cervical cancer that just started Friday. Patient has had daily paresthesias of her right fourth and fifth fingers, generally with waking up. This has resolved at this time. Patient feels shaky all over, mostly in the arms. Patient is having a lot of fatigue. Patient has difficulty with walking stating that is hard to get her legs moving. Patient denies weakness. Patient denies being off balance. No dizziness. No swelling. - Related Data Home Medications Medication Instructions Recorded Confirmed Calcium Carbonate [Tums] 500 mg PO QID PRN 03/26/17 03/28/17 Ferrous Sulfate [Feosol] 325 mg PO Q48H 03/28/17 03/28/17 Flaxseed Oil [[place]-3 Flaxseed Oil] 1,000 mg PO DAILY 03/28/17 03/28/17 Multivitamins, Thera [Multivitamin 1 tab PO DAILY 03/28/17 03/28/17 (formulary)] Ondansetron HCl [Zofran] 4 mg PO DAILY PRN 03/28/17 03/28/17 Allergies Allergy/AdvReac Type Severity Reaction Status Date / Time latex Allergy Dyspnea/Itc Verified 03/28/17 12:12 rose mold Allergy Dyspnea/Rapid Verified 03/28/17 12:12 Heart Rate sulfamethoxazole Allergy Dyspnea Verified 03/28/17 12:12 [From Bactrim] trimethoprim [From Bactrim] Allergy Dyspnea Verified 03/28/17 12:12 amoxicillin [From Augmentin] AdvReac Dizziness Verified 03/28/17 12:12 ampicillin AdvReac Rapid Verified 03/28/17 12:12 Heart Rate casein AdvReac Vertigo/Ear Verified 03/28/17 12:12 Aches clavulanic acid AdvReac Dizziness Verified 03/28/17 12:12 [From Augmentin] codeine AdvReac Rapid Verified 03/28/17 12:12 Heart Rate/Migraine cortisone AdvReac Rapid Verified 03/28/17 12:12 Heart Rate/Migraine doxycycline AdvReac Rapid Verified 03/28/17 12:12 Heart Rate lactose AdvReac Vertigo/Ear Verified 03/28/17 12:12 Aches levofloxacin [From Levaquin] AdvReac Hallucinati Verified 03/28/17 12:12 ons milk AdvReac Vertigo/Ear Verified 03/28/17 12:12 Aches naproxen [From Aleve] AdvReac Rapid Verified 03/28/17 12:12 Heart Rate Penicillins AdvReac Rapid Verified 03/28/17 12:12 Heart Rate soy AdvReac Diarrhea Verified 03/28/17 12:12 Skueqgs-Jrt-Xxf Reductase AdvReac Jaundice Verified 03/28/17 12:12 Inhibitor sulphites Allergy Dyspnea/Itc Uncoded 03/28/17 11:49 rose "Most Antibiotics" AdvReac Rapid Uncoded 03/28/17 11:49 Heart Rate Review of Systems ROS Statement: Those systems with pertinent positive or pertinent negative responses have been documented in the HPI. ROS Other: All systems not noted in ROS Statement are negative. Past Medical History Past Medical History: Cancer, Chest Pain / Angina Additional Past Medical History / Comment(s): angina, murmur,skin cancer, palpitations, vertigo, anemia- iron supplents, skin cancer, ibs, since 10-31-[address] care History of Any Multi-Drug Resistant Organisms: None Reported Past Surgical History: Appendectomy, Section, Heart Catheterization, Orthopedic Surgery, Tonsillectomy Additional Past Surgical History / Comment(s): cataract implants, colonoscopy/ polypectomy-benign,lt knee arthroscopy Past Anesthesia/Blood Transfusion Reactions: No Reported Reaction Additional Past Anesthesia/Blood Transfusion Reaction / Comment(s): clausterphobia Past Psychological History: No Psychological Hx Reported Smoking Status: Former smoker Past Alcohol Use History: None Reported Past Drug Use History: None Reported - Past Family History Father Family Medical History: Congestive Heart Failure (CHF) Mother Family Medical History: CVA/TIA Additional Family Medical History / Comment(s): grandmother has cervical cancer General Exam Limitations: no limitations General appearance: alert, in no apparent distress, other (Minimal tremor is noticed patient extends her arms.) Head exam: Present: atraumatic Eye exam: Present: normal appearance, PERRL, EOMI. Absent: nystagmus ENT exam: Present: normal oropharynx Neck exam: Present: normal inspection Respiratory exam: Present: normal lung sounds bilaterally Cardiovascular Exam: Present: regular rate, normal rhythm GI/Abdominal exam: Present: soft. Absent: tenderness Extremities exam: Present: normal inspection Neurological exam: Present: alert, CN II-XII intact. Absent: motor sensory deficit Expanded Speech: Present: fluid speech Cranial nerves: EOM's Intact: Normal Sensory exam: Upper Extremity Light Touch: Normal, Lower Extremity Light Touch: Normal Motor strength exam: RUE: 5, LUE: 5, RLE: 5, LLE: 5 Eye Response: (4) open spontaneously Motor Response: (6) obeys commands Verbal Response: (5) oriented Psychiatric exam: Present: normal affect, normal mood Skin exam: Present: normal color Course Vital Signs 03/28/17 11:49 Temperature 96.8 F L Pulse Rate 79 Respiratory 17 Rate Blood Pressure 117/56 O2 Sat by Pulse 100 Oximetry - Reevaluation(s) Reevaluation #1: 03/28/17 12:12 Patient is refusing any sort of treatment or Ativan at this time. 03/28/17 12:54 Patient reexamined and still refuses Ativan. Patient states if her blood work looks good she will just do deep breathing exercises. Medical Decision Making - Medical Decision Making Patient reexamined and already somewhat improved. Patient is requesting discharge home. Patient was updated on lab including sodium level. Patient is advised of need to have level rechecked again in the near future. Patient states last time she was in the hospital symptoms improved following IV fluids. - Lab Data Result diagrams: 03/28/17 12:24 03/28/17 12:24 Lab Results 03/28/17 03/28/17 Range/Units 12:24 12:24 WBC 6.5 (3.8-10.6) k/uL RBC 3.57 L (3.80-5.40) m/uL Hgb 11.5 (11.4-16.0) gm/dL Hct 34.6 (34.0-46.0) % MCV 96.9 (80.0-100.0) fL MCH 32.3 (25.0-35.0) pg MCHC 33.3 (31.0-37.0) g/dL RDW 13.0 (11.5-15.5) % Plt Count 242 (150-450) k/uL Neutrophils % 85 % Lymphocytes % 9 % Monocytes % 5 % Eosinophils % 1 % Basophils % 0 % Neutrophils # 5.5 (1.3-7.7) k/uL Lymphocytes # 0.6 L (1.0-4.8) k/uL Monocytes # 0.3 (0-1.0) k/uL Eosinophils # 0.1 (0-0.7) k/uL Basophils # 0.0 (0-0.2) k/uL Sodium 129 L (137-145) mmol/L Potassium 4.3 (3.5-5.1) mmol/L Chloride 95 L (98-107) mmol/L Carbon Dioxide 26 (22-30) mmol/L Anion Gap 8 mmol/L BUN 13 (7-17) mg/dL Creatinine 0.60 (0.52-1.04) mg/dL Est GFR (MDRD) Af Amer >60 (>60 ml/min/1.73 sqM) Est GFR (MDRD) Non-Af >60 (>60 ml/min/1.73 sqM) Glucose 87 (74-99) mg/dL Calcium 8.7 (8.4-10.2) mg/dL Phosphorus 3.0 (2.5-4.5) mg/dL Magnesium 1.8 (1.6-2.3) mg/dL Total Bilirubin 0.5 (0.2-1.3) mg/dL AST 21 (14-36) U/L ALT 25 (9-52) U/L Alkaline Phosphatase 34 L (38-126) U/L Creatine Kinase <20 L (30-135) U/L Total Protein 6.2 L (6.3-8.2) g/dL Albumin 3.4 L (3.5-5.0) g/dL TSH 1.190 (0.465-4.680) mIU/L Disposition Clinical Impression: Hyponatremia Disposition: HOME SELF-CARE Condition: Stable Instructions: Hyponatremia (ED) Additional Instructions: Please follow-up with primary care physician in the next day or 2 for recheck. Please also follow-up with your oncologist in the next day or 2 for recheck. Please have your sodium level checked within this week. Return for weakness, shaking, unable to walk, worsening symptoms or other concerns. Referrals: Julissa Burt MD [Primary Care Provider] - 1-2 days German Bryant MD [STAFF PHYSICIAN] - 1-2 days Time of Disposition: 13:51
[2017-03-28 12:56] LABS: Basophils % (A) 0 %; CH 32.1; CHCM 33.2; Eosinophils # (A) 0.1 k/uL (0-0.7); Eosinophils % (A) 1 %; HCT 34.6 % (34.0-46.0); HDW 1.97; HGB 11.5 gm/dL (11.4-16.0); Luc # (Auto) 0.03; Luc % (Auto) 1; Lymphocytes # (A) 0.6 k/uL (1.0-4.8); Lymphocytes % (A) 9 %; MCH 32.3 pg (25.0-35.0); MCHC 33.3 g/dL (31.0-37.0); MCV 96.9 fL (80.0-100.0); Mean Platelet Volume 7.3; Monocytes # (A) 0.3 k/uL (0-1.0); Monocytes % (A) 5 %; Neutrophils # (A) 5.5 k/uL (1.3-7.7); Neutrophils % (A) 85 %; RBC 3.57 m/uL (3.80-5.40); WBC 6.5 k/uL (3.8-10.6); WBC (Perox) 6.49
[2017-03-28 13:10] LABS: ALT 25 U/L (9-52); AST 21 U/L (14-36); Alkaline Phosphatase 34 U/L (38-126); Anion Gap 8 mmol/L; Blood Urea Nitrogen 13 mg/dL (7-17); Calcium 8.7 mg/dL (8.4-10.2); Carbon Dioxide 26 mmol/L (22-30); Chloride 95 mmol/L (98-107); Creatine Kinase <20 U/L (30-135); Glucose 87 mg/dL (74-99); Magnesium 1.8 mg/dL (1.6-2.3); Non-African American GFR(MDRD) >60 (>60 ml/min/1.73 sqM); Potassium 4.3 mmol/L (3.5-5.1); Sodium 129 mmol/L (137-145); Total Bilirubin 0.5 mg/dL (0.2-1.3); Total Protein 6.2 g/dL (6.3-8.2)
[2017-03-28] MEDS ORDERED: SODIUM CHLORIDE 0.9% 500 ML IV STA (13:37)
[2017-03-28 14:10] VITALS: BP 151/65; PULSE 80; RESP 18; TEMP 97.8
[2017-03-28 14:13] LABS: Appearance,Urine Clear (Clear); Bilirubin,Urine Negative (Negative); Glucose,Urine (UA) Negative (Negative); Ketones,Urine Negative (Negative); Leukocyte Esterase,Urine Small (Negative); Mucus,Urine Rare /hpf; Nitrite,Urine Negative (Negative); PH, Urine 7.5 (5.0-8.0); Particle Count 1344; Protein,Urine Negative (Negative); Specific Gravity,Urine 1.006 (1.001-1.035); UA Billing (MACRO vs. MICRO) MICRO; Urobilinogen,Urine <2.0 mg/dL (<2.0); WBC,Urine 3 /hpf (0-5)
== END 2017-03-28 14:12 | disposition home or self-care (01) ==
LOC: EC 11:43
DX: E87.1 Hypo-osmolality and hyponatremia (principal); C53.9 Malignant neoplasm of cervix uteri, unspecified; R25.1 Tremor, unspecified; R26.2 Difficulty in walking, not elsewhere classified; D64.9 Anemia, unspecified; Z87.891 Personal history of nicotine dependence; Z79.899 Other long term (current) drug therapy; Z88.0 Allergy status to penicillin; Z88.1 Allergy status to other antibiotic agents; Z88.6 Allergy status to analgesic agent; Z88.8 Allergy status to other drugs, medicaments and biological substances; Z91.011 Allergy to milk products; Z91.018 Allergy to other foods; Z91.040 Latex allergy status; Z91.048 Other nonmedicinal substance allergy status
CPT/HCPCS: 36415; 80053; 81001; 82550; 83735; 84100; 84443; 85025; 96365; 96366; 99283

== ENCOUNTER 2017-04-09 13:21 | Emergency (ER) | payer MEDICARE, OTHER ==
[2017-04-09] MEDS ORDERED: hydrOXYzine HCL 25 MG TAB PO STA (13:50)
[2017-04-09] MEDS ORDERED: SODIUM CHLORIDE 0.9% 2,000 ML IV ONE (13:50)
[2017-04-09 14:25] LABS: Basophils % (A) 0 %; CH 32.3; CHCM 33.4; Eosinophils # (A) 0.1 k/uL (0-0.7); Eosinophils % (A) 3 %; HCT 30.8 % (34.0-46.0); HDW 1.99; HGB 10.2 gm/dL (11.4-16.0); Luc # (Auto) 0.18; Luc % (Auto) 3; Lymphocytes # (A) 0.3 k/uL (1.0-4.8); Lymphocytes % (A) 6 %; MCH 32.3 pg (25.0-35.0); MCHC 33.2 g/dL (31.0-37.0); MCV 97.1 fL (80.0-100.0); Mean Platelet Volume 7.5; Monocytes # (A) 0.4 k/uL (0-1.0); Monocytes % (A) 9 %; Neutrophils # (A) 4.1 k/uL (1.3-7.7); Neutrophils % (A) 79 %; RBC 3.17 m/uL (3.80-5.40); RDW 13.9 % (11.5-15.5); WBC 5.2 k/uL (3.8-10.6); WBC (Perox) 5.28
[2017-04-09 14:33] LABS: Anion Gap 9 mmol/L; Blood Urea Nitrogen 9 mg/dL (7-17); Calcium 8.5 mg/dL (8.4-10.2); Carbon Dioxide 26 mmol/L (22-30); Chloride 93 mmol/L (98-107); Glucose 86 mg/dL (74-99); Non-African American GFR(MDRD) >60 (>60 ml/min/1.73 sqM); Potassium 3.5 mmol/L (3.5-5.1); Sodium 128 mmol/L (137-145)
[2017-04-09 14:49] VITALS: BP 150/66; PULSE 66; RESP 20
[2017-04-09 14:53] VITALS: TEMP 97.4
--- NOTE | 2017-04-09 15:14 | ED ---
General Adult HPI - General Chief complaint: Recheck/Abnormal Lab/Rx Stated complaint: rash Time Seen by Provider: 04/09/17 13:39 Source: patient Mode of arrival: EMS Limitations: no limitations - History of Present Illness Initial comments: Patient is a 71-year-old female with a history of cervical cancer currently undergoing chemoradiation who presents with a chief complaint of dizziness and rash on her chest and abdomen. Patient states that these symptoms started about 5 this morning. He states that she is supposed to have chemo and radiation today but was unable to arrange a ride to the hospital so she called EMS. Patient states that the rash is characterized as little bumps on her chest and abdomen. They do not itch or burn. Patient states that the lightheadedness is not new for her. She cannot think of any inciting incident. There are no aggravating or alleviating factors. - Related Data Home Medications Medication Instructions Recorded Confirmed Calcium Carbonate [Tums] 500 mg PO QID PRN 03/26/17 04/09/17 Ferrous Sulfate [Feosol] 325 mg PO Q48H 03/28/17 04/09/17 Flaxseed Oil [[place]-3 Flaxseed Oil] 1,000 mg PO DAILY 03/28/17 04/09/17 Multivitamins, Thera [Multivitamin 1 tab PO DAILY 03/28/17 04/09/17 (formulary)] Ondansetron HCl [Zofran] 4 mg PO DAILY PRN 03/28/17 04/09/17 Diphenox-Atrop 2.5-0.025 mg 1 tab PO Q8H 04/09/17 04/09/17 [Lomotil] Allergies Allergy/AdvReac Type Severity Reaction Status Date / Time latex Allergy Dyspnea/Itc Verified 04/09/17 13:38 rose mold Allergy Dyspnea/Rapid Verified 04/09/17 13:38 Heart Rate sulfamethoxazole Allergy Dyspnea Verified 04/09/17 13:38 [From Bactrim] trimethoprim [From Bactrim] Allergy Dyspnea Verified 04/09/17 13:38 amoxicillin [From Augmentin] AdvReac Dizziness Verified 04/09/17 13:38 ampicillin AdvReac Rapid Verified 04/09/17 13:38 Heart Rate casein AdvReac Vertigo/Ear Verified 04/09/17 13:38 Aches clavulanic acid AdvReac Dizziness Verified 04/09/17 13:38 [From Augmentin] codeine AdvReac Rapid Verified 04/09/17 13:38 Heart Rate/Migraine cortisone AdvReac Rapid Verified 04/09/17 13:38 Heart Rate/Migraine doxycycline AdvReac Rapid Verified 04/09/17 13:38 Heart Rate lactose AdvReac Vertigo/Ear Verified 04/09/17 13:38 Aches levofloxacin [From Levaquin] AdvReac Hallucinati Verified 04/09/17 13:38 ons milk AdvReac Vertigo/Ear Verified 04/09/17 13:38 Aches naproxen [From Aleve] AdvReac Rapid Verified 04/09/17 13:38 Heart Rate Penicillins AdvReac Rapid Verified 04/09/17 13:38 Heart Rate soy AdvReac Diarrhea Verified 04/09/17 13:38 Nfhwojv-Coy-Nyr Reductase AdvReac Jaundice Verified 04/09/17 13:38 Inhibitor sulphites Allergy Dyspnea/Itc Uncoded 03/28/17 11:49 rose "Most Antibiotics" AdvReac Rapid Uncoded 03/28/17 11:49 Heart Rate SUNSCREEN AdvReac WEAK & Uncoded 04/09/17 13:38 FUNMILAYO Review of Systems ROS Statement: Those systems with pertinent positive or pertinent negative responses have been documented in the HPI. ROS Other: All systems not noted in ROS Statement are negative. Constitutional: Denies: fever Eyes: Denies: vision change ENT: Denies: congestion Respiratory: Denies: cough Cardiovascular: Denies: chest pain Endocrine: Reports: fatigue Gastrointestinal: Denies: abdominal pain, nausea, vomiting Genitourinary: Denies: dysuria Musculoskeletal: Denies: back pain Skin: Denies: rash Neurological: Denies: headache Past Medical History Past Medical History: Cancer, Chest Pain / Angina Additional Past Medical History / Comment(s): angina, murmur,skin cancer, palpitations, vertigo, anemia- iron supplents, skin cancer, ibs, since 10-31-[address] care History of Any Multi-Drug Resistant Organisms: None Reported Past Surgical History: Appendectomy, Section, Heart Catheterization, Orthopedic Surgery, Tonsillectomy Additional Past Surgical History / Comment(s): cataract implants, colonoscopy/ polypectomy-benign,lt knee arthroscopy Past Anesthesia/Blood Transfusion Reactions: No Reported Reaction Additional Past Anesthesia/Blood Transfusion Reaction / Comment(s): clausterphobia Past Psychological History: No Psychological Hx Reported Smoking Status: Former smoker Past Alcohol Use History: None Reported Past Drug Use History: None Reported - Past Family History Father Family Medical History: Congestive Heart Failure (CHF) Mother Family Medical History: CVA/TIA Additional Family Medical History / Comment(s): grandmother has cervical cancer General Exam Limitations: no limitations General appearance: alert, in no apparent distress Head exam: Present: atraumatic, normocephalic Eye exam: Present: normal appearance ENT exam: Present: mucous membranes moist Neck exam: Present: normal inspection Respiratory exam: Present: normal lung sounds bilaterally Cardiovascular Exam: Present: regular rate, normal rhythm, normal heart sounds GI/Abdominal exam: Present: soft. Absent: distended, tenderness, guarding Rectal exam: Present: deferred Neurological exam: Present: alert, oriented X3 Psychiatric exam: Present: normal affect, normal mood, depressed Skin exam: Present: rash (Patient has a papular rash on her chest and abdomen. Papules are diffuse isolated. There is no surrounding erythema or induration there not painful or itchy) Course Vital Signs 04/09/17 04/09/17 13:26 14:43 Temperature 97.4 F L Pulse Rate 88 66 Respiratory 18 20 Rate Blood Pressure 154/71 150/66 O2 Sat by Pulse 100 100 Oximetry Medical Decision Making - Medical Decision Making Patient presents with a chief complaint of dizziness and rash. Patient is supposed to have radiation today at 2:15, but she was unable to make his appointment. She called an ambulance to come to the emergency department and while in the emergency department and arranged to have her radiation session at 5:15. Patient's rash appears to be either contact dermatitis or possibly a side effect of radiation. It does not appear to be bacterial or fungal in nature. The patient denies any new products or contacts. Patient was given a dose of Atarax for the rash. Patient was given 2 L of IV fluid. On reevaluation, patient states she feels better. The patient is anxious to make her radiation appointment. The patient will be given a prescription for Atarax for use at home. At this time, all questions are answered, patient instructed to follow up with primary care, oncology, or to return to the emergency department for symptoms worsening. - Lab Data Result diagrams: 10/04/17 14:05 04/09/17 14:05 Lab Results 04/09/17 04/09/17 Range/Units 14:05 14:05 WBC 5.2 (3.8-10.6) k/uL RBC 3.17 L (3.80-5.40) m/uL Hgb 10.2 L (11.4-16.0) gm/dL Hct 30.8 L (34.0-46.0) % MCV 97.1 (80.0-100.0) fL MCH 32.3 (25.0-35.0) pg MCHC 33.2 (31.0-37.0) g/dL RDW 13.9 (11.5-15.5) % Plt Count 229 (150-450) k/uL Neutrophils % 79 % Lymphocytes % 6 % Monocytes % 9 % Eosinophils % 3 % Basophils % 0 % Neutrophils # 4.1 (1.3-7.7) k/uL Lymphocytes # 0.3 L (1.0-4.8) k/uL Monocytes # 0.4 (0-1.0) k/uL Eosinophils # 0.1 (0-0.7) k/uL Basophils # 0.0 (0-0.2) k/uL Sodium 128 L (137-145) mmol/L Potassium 3.5 (3.5-5.1) mmol/L Chloride 93 L (98-107) mmol/L Carbon Dioxide 26 (22-30) mmol/L Anion Gap 9 mmol/L BUN 9 (7-17) mg/dL Creatinine 0.59 (0.52-1.04) mg/dL Est GFR (MDRD) Af Amer >60 (>60 ml/min/1.73 sqM) Est GFR (MDRD) Non-Af >60 (>60 ml/min/1.73 sqM) Glucose 86 (74-99) mg/dL Calcium 8.5 (8.4-10.2) mg/dL Disposition Clinical Impression: Rash and nonspecific skin eruption, Dehydration Disposition: HOME SELF-CARE Condition: Good Instructions: Dehydration (ED), Dermatitis (ED) Referrals: Julissa Burt MD [Primary Care Provider] - 1-2 days
== END 2017-04-09 15:22 | disposition home or self-care (01) ==
LOC: EC 13:21
DX: E86.0 Dehydration (principal); R21 Rash and other nonspecific skin eruption; R23.8 Other skin changes; C53.9 Malignant neoplasm of cervix uteri, unspecified; D64.9 Anemia, unspecified; F32.9 Major depressive disorder, single episode, unspecified; Z87.891 Personal history of nicotine dependence; Z92.3 Personal history of irradiation; Z92.21 Personal history of antineoplastic chemotherapy; Z79.899 Other long term (current) drug therapy; Z88.0 Allergy status to penicillin; Z88.1 Allergy status to other antibiotic agents; Z88.5 Allergy status to narcotic agent; Z88.6 Allergy status to analgesic agent; Z88.8 Allergy status to other drugs, medicaments and biological substances; Z91.011 Allergy to milk products; Z91.018 Allergy to other foods; Z91.040 Latex allergy status; Z91.048 Other nonmedicinal substance allergy status
CPT/HCPCS: 36415; 80048; 85025; 96360; 99284

== ENCOUNTER 2018-09-16 18:41 | Emergency (ER) | payer MEDICARE, OTHER ==
[2018-09-16 18:50] VITALS: RESP 18
[2018-09-16 19:20] LABS: Basophils % (A) 1 %; Eosinophils # (A) 0.1 k/uL (0-0.7); Eosinophils % (A) 2 %; HGB 12.9 gm/dL (11.4-16.0); Lymphocytes % (A) 27 %; MCH 34.4 pg (25.0-35.0); MCHC 33.9 g/dL (31.0-37.0); MCV 101.7 fL (80.0-100.0); Macrocytosis Slight; Monocytes # (A) 0.2 k/uL (0-1.0); Monocytes % (A) 7 %; Neutrophils # (A) 2.2 k/uL (1.3-7.7); Neutrophils % (A) 61 %; Platelet Count 172 k/uL (150-450); RBC 3.74 m/uL (3.80-5.40); RDW 13.6 % (11.5-15.5); WBC 3.7 k/uL (3.8-10.6)
[2018-09-16 19:25] LABS: INR 0.9 (<1.2); Partial Thromboplastin Time 25.6 sec (22.0-30.0); Prothrombin Time 10.1 sec (9.0-12.0)
[2018-09-16 19:40] LABS: Albumin 4.7 g/dL (3.5-5.0); Calcium 9.7 mg/dL (8.4-10.2); Potassium 3.9 mmol/L (3.5-5.1); Total Bilirubin 0.8 mg/dL (0.2-1.3); Total Protein 7.4 g/dL (6.3-8.2)
[2018-09-16] MEDS ORDERED: SODIUM CHLORIDE 0.9% 1,000 ML IV ONE (20:33)
--- NOTE | 2018-09-16 20:58 | XR ---
EXAMINATION TYPE: XR chest 2V DATE OF EXAM: 09/16/2018 COMPARISON: 08/03/2017 HISTORY: Short of breath TECHNIQUE: Frontal and lateral views of the chest are obtained. FINDINGS: Heart and mediastinum are normal. Lungs are clear. Diaphragm is normal. Bony thorax appear s normal. There is mild thoracolumbar levoscoliosis. IMPRESSION: No active cardiopulmonary disease. No change.
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
[2018-09-16 21:19] VITALS: BP 143/81; PULSE 83; TEMP 98
== END 2018-09-16 22:08 | disposition home or self-care (01) ==
LOC: EC 18:41
DX: R06.02 Shortness of breath (principal); R07.2 Precordial pain; R94.31 Abnormal electrocardiogram [ECG] [EKG]; D64.9 Anemia, unspecified; Z85.828 Personal history of other malignant neoplasm of skin; Z87.891 Personal history of nicotine dependence; Z79.82 Long term (current) use of aspirin; Z79.899 Other long term (current) drug therapy; Z91.040 Latex allergy status; Z88.2 Allergy status to sulfonamides; Z88.1 Allergy status to other antibiotic agents; Z88.0 Allergy status to penicillin; Z88.5 Allergy status to narcotic agent; Z91.018 Allergy to other foods; Z91.09 Other allergy status, other than to drugs and biological substances; Z88.6 Allergy status to analgesic agent; Z88.8 Allergy status to other drugs, medicaments and biological substances; Z95.818 Presence of other cardiac implants and grafts; Z53.8 Procedure and treatment not carried out for other reasons
CPT/HCPCS: 36415; 71046; 80053; 84484; 85025; 85610; 85730; 93005; 99285

== ENCOUNTER 2019-02-14 14:36 | Emergency (ER) | payer MEDICARE, OTHER ==
[2019-02-14 14:51] VITALS: TEMP 98
[2019-02-14] MEDS ORDERED: SODIUM CHLORIDE 0.9% 500 ML 500 ML IV ONE (14:55)
[2019-02-14 15:33] LABS: Basophils % (A) 0 %; Eosinophils # (A) 0.2 k/uL (0-0.7); Eosinophils % (A) 3 %; HCT 33.9 % (34.0-46.0); HGB 10.9 gm/dL (11.4-16.0); Lymphocytes % (A) 18 %; MCH 32.4 pg (25.0-35.0); MCHC 32.1 g/dL (31.0-37.0); MCV 101.1 fL (80.0-100.0); Mean Platelet Volume 7.3; Monocytes # (A) 0.2 k/uL (0-1.0); Monocytes % (A) 4 %; Neutrophils # (A) 4.1 k/uL (1.3-7.7); Neutrophils % (A) 73 %; Platelet Count 373 k/uL (150-450); RBC 3.35 m/uL (3.80-5.40); RDW 13.5 % (11.5-15.5); WBC 5.7 k/uL (3.8-10.6)
[2019-02-14 15:46] LABS: ALT 24 U/L (9-52); AST 33 U/L (14-36); African American GFR (CKD) >90 (>60 ml/min/1.73 sqM); Alkaline Phosphatase 45 U/L (38-126); Anion Gap 9 mmol/L; Blood Urea Nitrogen 12 mg/dL (7-17); Calcium 9.1 mg/dL (8.4-10.2); Carbon Dioxide 29 mmol/L (22-30); Chloride 99 mmol/L (98-107); Glucose 104 mg/dL (74-99); Non-African American GFR(CKD) 88 (>60 ml/min/1.73 sqM); Sodium 137 mmol/L (137-145); Total Bilirubin 0.3 mg/dL (0.2-1.3); Total Protein 7.2 g/dL (6.3-8.2)
--- NOTE | 2019-02-14 16:36 | ED ---
Abdominal Pain HPI - General Chief Complaint: Abdominal Pain Stated Complaint: Diarrhea Time Seen by Provider: 02/14/19 14:55 Source: patient Mode of arrival: ambulatory Limitations: no limitations - History of Present Illness Initial Comments: 73yo female presented for diarrhea 2 days. Patient states she is at a homeless residential. She states she began having diarrhea for the past 2 days. States is loose she states she did have a somewhat solid stool yesterday. And states her last bowel movement she had on the emergency department with soft hitting out of her rectum. Patient states she has had a few watery stools and does have a history of IBS. Patient denies melena or hematochezia. Patient states she did recently finish a course of azithromycin. Patient states she did not want to have diarrhea at the homeless residential. She was wondering if there something she could take to stop the diarrhea presents emergency department for evaluation. Patient denies any abdominal pain denies fevers. Patient denies any recent travel. Or history of HIV. Remaining review of systems negative upon arrival patient appears well there is no signs of acute distress. She is tolerating oral intake. - Related Data Home Medications Medication Instructions Recorded Confirmed Aspirin EC [Ecotrin Low Dose] 81 mg PO DAILY PRN 09/16/18 09/16/18 Calcium Carbonate [Calcium] 600 mg PO BID 09/16/18 09/16/18 Cyanocobalamin (Vitamin B-12) 1,000 mcg PO DAILY 09/16/18 09/16/18 [Vitamin B-12] Magnesium(Unknown Dose) 1 tab PO DAILY 09/16/18 09/16/18 Multivitamins, Thera [Multivitamin 1 tab PO DAILY 09/16/18 09/16/18 (formulary)] Vitamin B Complex 1 cap PO DAILY 09/16/18 09/16/18 Allergies Allergy/AdvReac Type Severity Reaction Status Date / Time latex Allergy Dyspnea/Itc Verified 09/16/18 20:14 rose mold Allergy Dyspnea/Rapid Verified 09/16/18 20:14 Heart Rate sulfamethoxazole Allergy Dyspnea Verified 09/16/18 20:14 [From Bactrim] trimethoprim [From Bactrim] Allergy Dyspnea Verified 09/16/18 20:14 amoxicillin [From Augmentin] AdvReac Dizziness Verified 09/16/18 20:14 ampicillin AdvReac Rapid Verified 09/16/18 20:14 Heart Rate casein AdvReac Vertigo/Ear Verified 09/16/18 20:14 Aches clavulanic acid AdvReac Dizziness Verified 09/16/18 20:14 [From Augmentin] codeine AdvReac Rapid Verified 09/16/18 20:14 Heart Rate/Migraine cortisone AdvReac Rapid Verified 09/16/18 20:14 Heart Rate/Migraine doxycycline AdvReac Rapid Verified 09/16/18 20:14 Heart Rate levofloxacin [From Levaquin] AdvReac Hallucinati Verified 09/16/18 20:14 ons naproxen [From Aleve] AdvReac Rapid Verified 09/16/18 20:14 Heart Rate Penicillins AdvReac Rapid Verified 09/16/18 20:14 Heart Rate soy AdvReac Diarrhea Verified 09/16/18 20:14 Seiiipm-Nxq-Ivt Reductase AdvReac Jaundice Verified 09/16/18 20:14 Inhibitor sulphites Allergy Dyspnea/Itc Uncoded 09/16/18 18:50 rose "Most Antibiotics" AdvReac Rapid Uncoded 09/16/18 18:50 Heart Rate SUNSCREEN AdvReac WEAK & Uncoded 09/16/18 18:50 SHAKY Review of Systems ROS Statement: Those systems with pertinent positive or pertinent negative responses have been documented in the HPI. ROS Other: All systems not noted in ROS Statement are negative. Past Medical History Past Medical History: Cancer, Chest Pain / Angina Additional Past Medical History / Comment(s): angina, murmur,skin cancer, palpitations, vertigo, anemia- iron supplents, skin cancer, since 10-31-[address] care History of Any Multi-Drug Resistant Organisms: None Reported Past Surgical History: Appendectomy, Section, Heart Catheterization, Orthopedic Surgery, Tonsillectomy Additional Past Surgical History / Comment(s): cataract implants, colonoscopy/polypectomy-benign,lt knee arthroscopy, rt wrist Past Anesthesia/Blood Transfusion Reactions: No Reported Reaction Additional Past Anesthesia/Blood Transfusion Reaction / Comment(s): clausterphobia Past Psychological History: No Psychological Hx Reported Smoking Status: Former smoker Past Alcohol Use History: None Reported Past Drug Use History: None Reported - Past Family History Father Family Medical History: Congestive Heart Failure (CHF) Mother Family Medical History: CVA/TIA Additional Family Medical History / Comment(s): grandmother has cervical cancer General Exam - General Exam Comments Initial Comments: General: The patient is awake and alert, in no distress, and does not appear acutely ill. Eye: Pupils are equal, round and reactive to light, extra-ocular movements are intact. No nystagmus. There is normal conjunctiva bilaterally. No signs of icterus. Ears, nose, mouth and throat: There are moist mucous membranes and no oral lesions. Neck: The neck is supple, there is no tenderness or JVD. Cardiovascular: There is a regular rate and rhythm. No murmur, rub or gallop is appreciated. Respiratory: Lungs are clear to auscultation, respirations are non-labored, breath sounds are equal. No wheezes, stridor, rales, or rhonchi. Gastrointestinal: Soft, non-distended, non-tender abdomen without masses or or ganomegaly noted. There is no rebound or guarding present. No CVA tenderness. Bowel sounds are unremarkable. Musculoskeletal: Normal ROM, no tenderness. Strength 5/5. Sensation intact. Pulses equal bilaterally 2+. Neurological: A&O x 3. CN II-XII intact, There are no obvious motor or sensory deficits. Coordination appears grossly intact. Speech is normal. Skin: Skin is warm and dry and no rashes or lesions are noted. Psychiatric: Cooperative, appropriate mood & affect, normal judgment. Was visualized and have not but was contaminated with urine. It appeared to be formed soft light brown Limitations: no limitations Course Vital Signs 02/14/19 02/14/19 14:48 16:55 Temperature 98.0 F 98.0 F Pulse Rate 82 81 Respiratory 18 16 Rate Blood Pressure 144/70 130/73 O2 Sat by Pulse 97 99 Oximetry Medical Decision Making - Medical Decision Making 73-year-old female presenting for diarrhea 2 days. Patient has no clinical signs of dehydration. Laboratory studies are unremarkable. No electrolytes arrangements. Patient is provided eye dehydration the emergency department. Patient is now having soft stools no yamile diarrhea. Suicidal did not appear consistent with C. difficile infection. Patient has no leukocytosis. Abdominal pain on examination. No fevers. The study. Patient stable for discharge with outpatient primary care follow-up. Patient is agreeable to this care plan patient was encouraged to take a probiotic. Patient was evaluated by attending provider and patient was discharged appearing well she is agreeable to Plan discharge - Lab Data Result diagrams: 02/14/19 15:24 02/14/19 15:24 Lab Results 02/14/19 02/14/19 Range/Units 15:24 15:24 WBC 5.7 (3.8-10.6) k/uL RBC 3.35 L (3.80-5.40) m/uL Hgb 10.9 L (11.4-16.0) gm/dL Hct 33.9 L (34.0-46.0) % MCV 101.1 H (80.0-100.0) fL MCH 32.4 (25.0-35.0) pg MCHC 32.1 (31.0-37.0) g/dL RDW 13.5 (11.5-15.5) % Plt Count 373 (150-450) k/uL Neutrophils % 73 % Lymphocytes % 18 % Monocytes % 4 % Eosinophils % 3 % Basophils % 0 % Neutrophils # 4.1 (1.3-7.7) k/uL Lymphocytes # 1.0 (1.0-4.8) k/uL Monocytes # 0.2 (0-1.0) k/uL Eosinophils # 0.2 (0-0.7) k/uL Basophils # 0.0 (0-0.2) k/uL Sodium 137 (137-145) mmol/L Potassium 4.0 (3.5-5.1) mmol/L Chloride 99 (98-107) mmol/L Carbon Dioxide 29 (22-30) mmol/L Anion Gap 9 mmol/L BUN 12 (7-17) mg/dL Creatinine 0.63 (0.52-1.04) mg/dL Est GFR (CKD-EPI)AfAm >90 (>60 ml/min/1.73 sqM) Est GFR (CKD-EPI)NonAf 88 (>60 ml/min/1.73 sqM) Glucose 104 H (74-99) mg/dL Calcium 9.1 (8.4-10.2) mg/dL Total Bilirubin 0.3 (0.2-1.3) mg/dL AST 33 (14-36) U/L ALT 24 (9-52) U/L Alkaline Phosphatase 45 (38-126) U/L Total Protein 7.2 (6.3-8.2) g/dL Albumin 4.0 (3.5-5.0) g/dL Disposition Clinical Impression: Diarrhea Disposition: HOME SELF-CARE Condition: Good Instructions (If sedation given, give patient instructions): Acute Diarrhea (ED) Additional Instructions: Please use medication as discussed. Please follow-up with family doctor in the next 2 days. Please return to emergency room if the symptoms increase or worsen or for any other concerns. Is patient prescribed a controlled substance at d/c from ED?: No Referrals: Jayson Hu DO [Primary Care Provider] - 1-2 days Time of Disposition: 16:36
[2019-02-14 16:56] VITALS: BP 130/73; PULSE 81; RESP 16
== END 2019-02-14 16:43 | disposition home or self-care (01) ==
LOC: EC 14:36
DX: R19.7 Diarrhea, unspecified (principal); R10.9 Unspecified abdominal pain; Z87.891 Personal history of nicotine dependence; Z88.0 Allergy status to penicillin; Z88.1 Allergy status to other antibiotic agents; Z88.2 Allergy status to sulfonamides; Z88.5 Allergy status to narcotic agent; Z88.6 Allergy status to analgesic agent; Z88.8 Allergy status to other drugs, medicaments and biological substances; Z91.040 Latex allergy status; Z91.048 Other nonmedicinal substance allergy status; Z85.828 Personal history of other malignant neoplasm of skin; Z87.19 Personal history of other diseases of the digestive system; Z86.2 Personal history of diseases of the blood and blood-forming organs and certain disorders involving the immune mechanism; Z90.49 Acquired absence of other specified parts of digestive tract; Z59.0 Homelessness
CPT/HCPCS: 36415; 80053; 85025; 99284

== ENCOUNTER 2021-03-11 22:04 | Emergency (ER) | payer MEDICARE, OTHER ==
[2021-03-11] MEDS ORDERED: TOBRAMYCIN 0.3% OPHTH OINT 3.5 GM TUBE LEFT EYE STA (22:40)
--- NOTE | 2021-03-11 22:42 | ED ---
General Adult HPI - General Chief complaint: Eye Problems Stated complaint: L eye abscess Time Seen by Provider: 03/11/21 22:19 Source: patient Mode of arrival: ambulatory Limitations: no limitations - History of Present Illness Initial comments: 75 year-old female patient presents to the emergency department for evaluation of "abscess" to her left eyelid. States that it was a small pimple for the last few weeks. States over the last several days it has become larger and more red. States she has peeled the skin off and it has been draining clear fluids. States it is tender to touch. Denies any fever or chills. Denies difficulty with vision. Denies history of similar symptoms. - Related Data Home Medications Medication Instructions Recorded Confirmed Aspirin EC [Ecotrin Low Dose] 81 mg PO DAILY PRN 09/16/18 09/16/18 Calcium Carbonate [Calcium] 600 mg PO BID 09/16/18 09/16/18 Cyanocobalamin (Vitamin B-12) 1,000 mcg PO DAILY 09/16/18 09/16/18 [Vitamin B-12] Magnesium(Unknown Dose) 1 tab PO DAILY 09/16/18 09/16/18 Multivitamins, Thera [Multivitamin 1 tab PO DAILY 09/16/18 09/16/18 (formulary)] Vitamin B Complex 1 cap PO DAILY 09/16/18 09/16/18 Allergies Allergy/AdvReac Type Severity Reaction Status Date / Time latex Allergy Dyspnea/Itc Verified 03/11/21 22:12 rose mold Allergy Dyspnea/Rapid Verified 03/11/21 22:12 Heart Rate sulfamethoxazole Allergy Dyspnea Verified 03/11/21 22:12 [From Bactrim] trimethoprim [From Bactrim] Allergy Dyspnea Verified 03/11/21 22:12 amoxicillin [From Augmentin] AdvReac Dizziness Verified 03/11/21 22:12 ampicillin AdvReac Rapid Verified 03/11/21 22:12 Heart Rate casein AdvReac Vertigo/Ear Verified 03/11/21 22:12 Aches clavulanic acid AdvReac Dizziness Verified 03/11/21 22:12 [From Augmentin] codeine AdvReac Rapid Verified 03/11/21 22:12 Heart Rate/Migraine cortisone AdvReac Rapid Verified 03/11/21 22:12 Heart Rate/Migraine doxycycline AdvReac Rapid Verified 03/11/21 22:12 Heart Rate levofloxacin [From Levaquin] AdvReac Hallucinati Verified 03/11/21 22:12 ons naproxen [From Aleve] AdvReac Rapid Verified 03/11/21 22:12 Heart Rate Penicillins AdvReac Rapid Verified 03/11/21 22:12 Heart Rate soy AdvReac Diarrhea Verified 03/11/21 22:12 Yuxjtmq-Fqk-Pun Reductase AdvReac Jaundice Verified 03/11/21 22:12 Inhibitor sulphites Allergy Dyspnea/Itc Uncoded 03/11/21 22:12 rose "Most Antibiotics" AdvReac Rapid Uncoded 03/11/21 22:12 Heart Rate SUNSCREEN AdvReac WEAK & Uncoded 03/11/21 22:12 SHAKY Review of Systems ROS Statement: Those systems with pertinent positive or pertinent negative responses have been documented in the HPI. ROS Other: All systems not noted in ROS Statement are negative. Past Medical History Past Medical History: Cancer, Chest Pain / Angina Additional Past Medical History / Comment(s): angina, murmur,skin cancer, palpitations, vertigo, anemia- iron supplents, skin cancer, since 10-31-[address] care History of Any Multi-Drug Resistant Organisms: None Reported Past Surgical History: Appendectomy, Section, Heart Catheterization, Orthopedic Surgery, Tonsillectomy Additional Past Surgical History / Comment(s): cataract implants, colonoscopy/polypectomy-benign,lt knee arthroscopy, rt wrist Past Anesthesia/Blood Transfusion Reactions: No Reported Reaction Additional Past Anesthesia/Blood Transfusion Reaction / Comment(s): clausterphobia Past Psychological History: No Psychological Hx Reported Smoking Status: Never smoker Past Alcohol Use History: None Reported Past Drug Use History: None Reported - Past Family History Father Family Medical History: Congestive Heart Failure (CHF) Mother Family Medical History: CVA/TIA Additional Family Medical History / Comment(s): grandmother has cervical cancer General Exam Limitations: no limitations General appearance: alert, in no apparent distress, other (This is a well- developed, well-nourished adult female patient in no acute distress. Vital signs upon presentation are temperature 97.7F, pulse 97, respirations 18, blood pressure 144/75, pulse ox 97% on room air.) Eye exam: Present: PERRL, EOMI, other (There is chalazia noted to the left upper lid. There is scabbed lesion overlying. Mild erythema. No drainage at this time.). Absent: normal appearance, scleral icterus, conjunctival injection, periorbital swelling ENT exam: Present: normal exam, normal oropharynx, mucous membranes moist Respiratory exam: Present: normal lung sounds bilaterally. Absent: respiratory distress, wheezes, rales, rhonchi, stridor Cardiovascular Exam: Present: regular rate, normal rhythm, normal heart sounds. Absent: systolic murmur, diastolic murmur, rubs, gallop, clicks Neurological exam: Present: alert, oriented X3, CN II-XII intact Psychiatric exam: Present: normal affect, normal mood Skin exam: Present: warm, dry, intact, normal color. Absent: rash Course Vital Signs 03/11/21 03/11/21 22:13 23:18 Temperature 97.7 F 98.0 F Pulse Rate 97 92 Respiratory 18 20 Rate Blood Pressure 144/75 137/78 O2 Sat by Pulse 97 98 Oximetry Medical Decision Making - Medical Decision Making 75-year-old female patient presents to the emergency department today for evaluation of a lesion to the left eyelid. Physical examination did reveal erythematous lesion consistent with chalazion to the left eyelid. There is no drainage at this time. Patient has peeled the skin also there is a scabbed lesion. We'll give tobramycin ointment to apply overlying to prevent secondary infection. She is instructed to apply warm compresses and to cleanse the eye area with baby shampoo. She'll be discharged follow up with the scrap materials buyer for further evaluation as soon as possible. Return parameters were discussed in detail. She verbalizes understanding and agrees with this plan. My attending is Dr. Ruth. Disposition Clinical Impression: Chalazion left upper eyelid Disposition: HOME SELF-CARE Condition: Good Instructions (If sedation given, give patient instructions): Chalazion (ED) Additional Instructions: Apply warm compresses 15 minutes at a time, at least 4x per day. Wash eyes with baby shampoo twice daily. Use ointment over the open area of the lesion. Follow up with ophthalmology for further evaluation in 1 week if symptoms aren't improved. Return for any new, worsening, or concerning symptoms. Is patient prescribed a controlled substance at d/c from ED?: No Referrals: Jayson Hu, [Primary Care Provider] - 1-2 days Time of Disposition: 22:42
[2021-03-11 23:20] VITALS: BP 137/78; PULSE 92; RESP 20; TEMP 98
== END 2021-03-11 23:18 | disposition home or self-care (01) ==
LOC: EC 22:04
DX: H00.14 Chalazion left upper eyelid (principal); Z79.82 Long term (current) use of aspirin; Z91.040 Latex allergy status; Z88.2 Allergy status to sulfonamides; Z88.1 Allergy status to other antibiotic agents; Z88.0 Allergy status to penicillin; Z90.49 Acquired absence of other specified parts of digestive tract; Z90.89 Acquired absence of other organs
CPT/HCPCS: 99282

== ENCOUNTER 2021-04-02 08:43 | Inpatient (IN) | payer MEDICARE, OTHER ==
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
[2021-04-02 10:09] LABS: Basophils % (A) 1 %; Eosinophils # (A) 0.1 k/uL (0-0.7); Eosinophils % (A) 1 %; HCT 24.8 % (34.0-46.0); HGB 8.1 gm/dL (11.4-16.0); Lymphocytes # (A) 0.8 k/uL (1.0-4.8); Lymphocytes % (A) 11 %; MCH 32.5 pg (25.0-35.0); MCHC 32.8 g/dL (31.0-37.0); MCV 99.3 fL (80.0-100.0); Mean Platelet Volume 7.6; Monocytes # (A) 0.3 k/uL (0-1.0); Monocytes % (A) 4 %; Neutrophils # (A) 5.8 k/uL (1.3-7.7); Neutrophils % (A) 82 %; Platelet Count 239 k/uL (150-450); RDW 14.2 % (11.5-15.5)
[2021-04-02 10:21] LABS: ALT 20 U/L (4-34); AST 38 U/L (14-36); African American GFR (CKD) >90 (>60 ml/min/1.73 sqM); Albumin 3.1 g/dL (3.5-5.0); Alkaline Phosphatase 32 U/L (38-126); Anion Gap 6 mmol/L; Blood Urea Nitrogen 41 mg/dL (7-17); Calcium 8.5 mg/dL (8.4-10.2); Carbon Dioxide 25 mmol/L (22-30); Chloride 100 mmol/L (98-107); Glucose 108 mg/dL (74-99); Magnesium 1.9 mg/dL (1.6-2.3); Non-African American GFR(CKD) 84 (>60 ml/min/1.73 sqM); Potassium 4.7 mmol/L (3.5-5.1); Sodium 131 mmol/L (137-145); Total Bilirubin 0.3 mg/dL (0.2-1.3); Total Protein 5.5 g/dL (6.3-8.2)
[2021-04-02 10:58] LABS: Appearance,Urine Clear (Clear); Bilirubin,Urine Negative (Negative); Blood,Urine Negative (Negative); Color,Urine Light Yellow; Glucose,Urine (UA) Negative (Negative); Ketones,Urine Negative (Negative); Leukocyte Esterase,Urine Negative (Negative); Nitrite,Urine Negative (Negative); Protein,Urine Negative (Negative); Specific Gravity,Urine 1.011 (1.001-1.035); Urobilinogen,Urine <2.0 mg/dL (<2.0)
[2021-04-02] MEDS ORDERED: PANTOPRAZOLE 40 MG/10 ML VIAL IVP STA (12:03)
[2021-04-02] MEDS ORDERED: ONDANSETRON 4 MG/2 ML VIAL IVP PRN (12:23)
[2021-04-02] MEDS ORDERED: NALOXONE 0.4 MG/ML 1 ML VIAL IV PRN (12:23)
[2021-04-02] MEDS: SODIUM CHLORIDE 0.9% 1,000 ML IV SCH (13:09)
--- NOTE | 2021-04-02 15:32 | P.GSCN ---
History of Present Illness Consult date: 04/02/21 Reason for Consult: GI bleed History of present illness: CHIEF COMPLAINT: Dizziness, GI bleed HISTORY OF PRESENT ILLNESS: This is a 75-year-old female who presented to the emergency department with complaints of dizziness and weakness. Patient states she was feeling so dizzy she was having a difficult time standing up, she states she had called EMS and she was brought to the emergency department for further evaluation. She has a past medical history of angina, skin cancer, endometriosis and reportedly homeless. Her past surgical history includes appendectomy and section. While being in the emergency department she started having loose bowels which were dark, maroon colored blood and blood clots. She denies any previous history of GI bleed. She denies any previous history of peptic ulcer disease, blood thinners or NSAIDs use. She has no previous history of EGD. She does states that she had a colonoscopy in [address] Kirby significant for polypectomy. She states that she recently ate some undercooked chicken. She denies any fever, chills, nausea,vomiting or abdominal pain. Bowel patterns are normal at home with no reported melena or hematochezia. She has had 2-3 loose bowel movements since being in the emergency department. She's been afebrile. Admitting labs WBC 7.0 hemoglobin 8.1 platelet count 239,000 sodium 131 potassium 4.7 41 creatinine 0.69 total bilirubin 0.3 AST 38 ALT 20 alkaline phosphatase 32 albumin 3.1 PAST MEDICAL HISTORY: See list. PAST SURGICAL HISTORY: See list. MEDICATIONS: See list. ALLERGIES: See list. SOCIAL HISTORY: No illicit drug use. REVIEW OF SYSTEMS: CONSTITUTIONAL: Denies fever or chills. Dizziness. Weakness. HEENT: Denies blurred vision, vision changes, or eye pain. Denies hemoptysis CARDIOVASCULAR: Denies chest pain or pressure. RESPIRATORY: No shortness of breath. GASTROINTESTINAL: See HPI for pertinent findings HEMATOLOGIC: Denies bleeding disorders. GENITOURINARY: Denies any blood in urine or increased urinary frequency. SKIN: Denies pruitis. Denies rash. PHYSICAL EXAM: VITAL SIGNS: Reviewed GENERAL: Well-developed in no acute distress. HEENT: No sclera icterus. Extraocular movements grossly intact. Moist buccal mucosa. Head is atraumatic, normocephalic. No nasal drainage. ABDOMEN: Soft. Nontender. Nondistended. NEUROLOGIC: Alert and oriented. Cranial nerves II through XII grossly intact. LABORATORY DATA: WBC 7.0 hemoglobin 8.1 platelet count 239,000 sodium 131 potassium 4.7 41 creatinine 0.69 Total bilirubin 0.3 AST 38 ALT 20 alkaline phosphatase 32 albumin 3.1 IMAGING: ASSESSMENT: 1. GI bleed 2. Dizziness/weakness 3. Anemia PLAN: 1. Repeat CBC, BMP in the morning 2. Patient may have clear liquid diet, nothing by mouth after midnight 3. Protonix 40 mg twice a day 4. Stool cultures ordered 5. Patient scheduled for EGD tomorrow, procedure discussed with patient includ ing risks and benefits. Patient willing to proceed. The impression and plan of care has been dictated as directed. Dr. Pepe I performed a history and examination of this patient, discussed the same with the dictator. I agree with the dictator's note ,documented as a scribe. Any additional findings or plans will be noted. Past Medical History Past Medical History: Cancer, Chest Pain / Angina Additional Past Medical History / Comment(s): angina, murmur,skin cancer, palpitations, vertigo, anemia- iron supplents, skin cancer, since 10-31-[address] care History of Any Multi-Drug Resistant Organisms: None Reported Past Surgical History: Appendectomy, Section, Heart Catheterization, Orthopedic Surgery, Tonsillectomy Additional Past Surgical History / Comment(s): cataract implants, colonoscopy/polypectomy-benign,lt knee arthroscopy, rt wrist Past Anesthesia/Blood Transfusion Reactions: No Reported Reaction Additional Past Anesthesia/Blood Transfusion Reaction / Comm: clausterphobia Past Psychological History: No Psychological Hx Reported Smoking Status: Never smoker Past Alcohol Use History: None Reported Past Drug Use History: None Reported - Past Family History Father Family Medical History: Congestive Heart Failure (CHF) Mother Family Medical History: CVA/TIA Additional Family Medical History / Comment(s): grandmother has cervical cancer Medications and Allergies Home Medications Medication Instructions Recorded Confirmed Type Aspirin EC [Ecotrin Low Dose] 81 mg PO DAILY 09/16/18 04/02/21 History Calcium Carbonate [Calcium] 600 mg PO BID 09/16/18 04/02/21 History Cyanocobalamin (Vitamin B-12) 1,000 mcg PO DAILY 09/16/18 04/02/21 History [Vitamin B-12] Magnesium(Unknown Dose) 1 tab PO DAILY 09/16/18 04/02/21 History Multivitamins, Thera [Multivitamin 1 tab PO DAILY 09/16/18 04/02/21 History (formulary)] Vitamin B Complex 1 cap PO DAILY 09/16/18 04/02/21 History Tobra-Dexamet 0.3-0.1% Eye Oin 1 applic LEFT EYE BID 04/02/21 04/02/21 History [Tobradex Ophth Oint] Allergies Allergy/AdvReac Type Severity Reaction Status Date / Time latex Allergy Dyspnea/Itc Verified 04/02/21 09:43 rose mold Allergy Dyspnea/Rapid Verified 04/02/21 09:43 Heart Rate sulfamethoxazole Allergy Dyspnea Verified 04/02/21 09:43 [From Bactrim] trimethoprim [From Bactrim] Allergy Dyspnea Verified 04/02/21 09:43 amoxicillin [From Augmentin] AdvReac Dizziness Verified 04/02/21 09:43 ampicillin AdvReac Rapid Verified 04/02/21 09:43 Heart Rate casein AdvReac Vertigo/Ear Verified 04/02/21 09:43 Aches clavulanic acid AdvReac Dizziness Verified 04/02/21 09:43 [From Augmentin] codeine AdvReac Rapid Verified 04/02/21 09:43 Heart Rate/Migraine cortisone AdvReac Rapid Verified 04/02/21 09:43 Heart Rate/Migraine doxycycline AdvReac Rapid Verified 04/02/21 09:43 Heart Rate levofloxacin [From Levaquin] AdvReac Hallucinati Verified 04/02/21 09:43 ons naproxen [From Aleve] AdvReac Rapid Verified 04/02/21 09:43 Heart Rate Penicillins AdvReac Rapid Verified 04/02/21 09:43 Heart Rate soy AdvReac Diarrhea Verified 04/02/21 09:43 [id number] Reductase AdvReac Jaundice Verified 04/02/21 09:43 Inhibitor sulphites Allergy Dyspnea/Itc Uncoded 03/11/21 22:12 rose "Most Antibiotics" AdvReac Rapid Uncoded 03/11/21 22:12 Heart Rate SUNSCREEN AdvReac WEAK & Uncoded 03/11/21 22:12 SHAKY Surgical - Exam Vital Signs Temp Pulse Resp BP Pulse Ox 97.5 F L 89 20 143/65 100 04/02/21 08:53 04/02/21 08:53 04/02/21 08:53 04/02/21 08:53 04/02/21 08:53 Results - Labs 04/02/21 09:56 04/02/21 09:56 Abnormal Lab Results - Last 24 Hours (Table) 04/02/21 04/02/21 Range/Units 09:56 09:56 RBC 2.50 L (3.80-5.40) m/uL Hgb 8.1 L (11.4-16.0) gm/dL Hct 24.8 L (34.0-46.0) % Lymphocytes # 0.8 L (1.0-4.8) k/uL Sodium 131 L (137-145) mmol/L BUN 41 H (7-17) mg/dL Glucose 108 H (74-99) mg/dL AST 38 H (14-36) U/L Alkaline Phosphatase 32 L (38-126) U/L Total Protein 5.5 L (6.3-8.2) g/dL Albumin 3.1 L (3.5-5.0) g/dL Diabetes panel 04/02/21 Range/Units 09:56 Sodium 131 L (137-145) mmol/L Potassium 4.7 (3.5-5.1) mmol/L Chloride 100 (98-107) mmol/L Carbon Dioxide 25 (22-30) mmol/L BUN 41 H (7-17) mg/dL Creatinine 0.69 (0.52-1.04) mg/dL Glucose 108 H (74-99) mg/dL Calcium 8.5 (8.4-10.2) mg/dL AST 38 H (14-36) U/L ALT 20 (4-34) U/L Alkaline Phosphatase 32 L (38-126) U/L Total Protein 5.5 L (6.3-8.2) g/dL Albumin 3.1 L (3.5-5.0) g/dL Calcium panel 04/02/21 Range/Units 09:56 Calcium 8.5 (8.4-10.2) mg/dL Albumin 3.1 L (3.5-5.0) g/dL Pituitary panel 04/02/21 Range/Units 09:56 Sodium 131 L (137-145) mmol/L Potassium 4.7 (3.5-5.1) mmol/L Chloride 100 (98-107) mmol/L Carbon Dioxide 25 (22-30) mmol/L BUN 41 H (7-17) mg/dL Creatinine 0.69 (0.52-1.04) mg/dL Glucose 108 H (74-99) mg/dL Calcium 8.5 (8.4-10.2) mg/dL Adrenal panel 04/02/21 Range/Units 09:56 Sodium 131 L (137-145) mmol/L Potassium 4.7 (3.5-5.1) mmol/L Chloride 100 (98-107) mmol/L Carbon Dioxide 25 (22-30) mmol/L BUN 41 H (7-17) mg/dL Creatinine 0.69 (0.52-1.04) mg/dL Glucose 108 H (74-99) mg/dL Calcium 8.5 (8.4-10.2) mg/dL Total Bilirubin 0.3 (0.2-1.3) mg/dL AST 38 H (14-36) U/L ALT 20 (4-34) U/L Alkaline Phosphatase 32 L (38-126) U/L Total Protein 5.5 L (6.3-8.2) g/dL Albumin 3.1 L (3.5-5.0) g/dL
[2021-04-02 16:50] LABS: Basophils % (A) 0 %; Eosinophils # (A) 0.1 k/uL (0-0.7); Eosinophils % (A) 2 %; Lymphocytes # (A) 1.1 k/uL (1.0-4.8); Lymphocytes % (A) 17 %; MCHC 33.2 g/dL (31.0-37.0); MCV 99.5 fL (80.0-100.0); Monocytes # (A) 0.2 k/uL (0-1.0); Monocytes % (A) 3 %; Neutrophils # (A) 4.6 k/uL (1.3-7.7); Neutrophils % (A) 75 %; Platelet Count 208 k/uL (150-450); RBC 1.94 m/uL (3.80-5.40); RDW 14.2 % (11.5-15.5); WBC 6.1 k/uL (3.8-10.6)
[2021-04-02 16:59] LABS: HCT 19.3 % (34.0-46.0); HGB 6.4 gm/dL (11.4-16.0)
[2021-04-02] MEDS: PANTOPRAZOLE 40 MG/10 ML VIAL IV SCH (21:00)
[2021-04-02 21:55] LABS: Glucose,Whole Blood 130 mg/dL (75-99)
[2021-04-03] MEDS: LACTATED RINGERS 1,000 ML IV SCH ×2 (03:21→20:28)
[2021-04-03 05:17] LABS: Anisocytosis Slight; Basophils % (A) 1 %; Eosinophils # (A) 0.1 k/uL (0-0.7); Eosinophils % (A) 2 %; HCT 26.7 % (34.0-46.0); Hyperchromasia Slight; Lymphocytes # (A) 1.1 k/uL (1.0-4.8); Lymphocytes % (A) 18 %; MCH 31.3 pg (25.0-35.0); MCHC 35.6 g/dL (31.0-37.0); Mean Platelet Volume 7.2; Monocytes # (A) 0.3 k/uL (0-1.0); Monocytes % (A) 5 %; Neutrophils # (A) 4.6 k/uL (1.3-7.7); Neutrophils % (A) 71 %; Platelet Count 169 k/uL (150-450); Poikilocytosis Slight; RBC 3.04 m/uL (3.80-5.40); RDW 17.9 % (11.5-15.5); WBC 6.5 k/uL (3.8-10.6)
[2021-04-03 05:22] LABS: HGB 9.5 gm/dL (11.4-16.0); MCV 87.9 fL (80.0-100.0)
[2021-04-03 05:38] LABS: African American GFR (CKD) >90 (>60 ml/min/1.73 sqM); Anion Gap 5 mmol/L; Blood Urea Nitrogen 28 mg/dL (7-17); Carbon Dioxide 18 mmol/L (22-30); Chloride 107 mmol/L (98-107); Glucose 99 mg/dL (74-99); Non-African American GFR(CKD) >90 (>60 ml/min/1.73 sqM); Potassium 4.2 mmol/L (3.5-5.1); Sodium 130 mmol/L (137-145)
[2021-04-03] MEDS: SODIUM CHLORIDE 0.9% 1,000 ML IV SCH (08:02)
[2021-04-03] MEDS ORDERED: SODIUM CHLORIDE 0.9% 500 ML 500 ML IV ONE (08:54)
--- NOTE | 2021-04-03 09:05 | P.OP ---
Date of Procedure: 04/03/21 Preoperative Diagnosis: GI bleed Postoperative Diagnosis: Duodenal ulcer without evidence of active GI bleed Procedure(s) Performed: EGD Anesthesia: MAC Surgeon: Jm Pepe Pathology: other (duodenum) Condition: stable Disposition: ICU Description of Procedure: The patient's placed on the endoscopy table in the lateral position. She received IV sedation. The gastroscope placed oropharynx passed in the esophagus into the stomach. Scope was placed through the pylorus. In the second portion of duodenum there appeared to be evidence of ulceration. There was inflammatory changes without evidence of bleeding. This area is biopsied. The scope was then brought back the antrum this appeared normal. Scope was then retroflexed remainder stomach appeared normal. There was no evidence of any upper GI bleed. Scope was brought back and the distal esophagus was normal. Proximal esophagus was normal. Scope was withdrawn for patient.
[2021-04-03] MEDS ORDERED: PEG 3350-NA SULF,BICARB,CL/KCL 4,000 ML BOTTLE PO ONE (09:06)
[2021-04-03 10:01] LABS: Anisocytosis Slight; Basophils # (A) 0.1 k/uL (0-0.2); Basophils % (A) 1 %; Eosinophils # (A) 0.3 k/uL (0-0.7); Eosinophils % (A) 4 %; HCT 30.4 % (34.0-46.0); HGB 10.4 gm/dL (11.4-16.0); Lymphocytes # (A) 1.9 k/uL (1.0-4.8); Lymphocytes % (A) 22 %; MCH 30.7 pg (25.0-35.0); MCHC 34.2 g/dL (31.0-37.0); MCV 89.8 fL (80.0-100.0); Monocytes # (A) 0.4 k/uL (0-1.0); Monocytes % (A) 4 %; Neutrophils # (A) 5.6 k/uL (1.3-7.7); Neutrophils % (A) 67 %; Platelet Count 181 k/uL (150-450); Poikilocytosis Slight; RBC 3.38 m/uL (3.80-5.40); RDW 17.9 % (11.5-15.5); WBC 8.3 k/uL (3.8-10.6)
[2021-04-03] MEDS: PANTOPRAZOLE 40 MG/10 ML VIAL IV SCH (11:48)
--- NOTE | 2021-04-03 11:58 | P.CNPUL ---
History of Present Illness Consult date: 04/03/21 Chief complaint: GI bleeding History of present illness: This is a 75-year-old female patient was hospitalized for a lower GI bleed. The patient came into the hospital having loose bowel movements that were dark and maroon colored with some occasional blood clots. She denies having any previous history of GI bleed. No hematemesis. No coffee-ground emesis. No history of any previous GI bleed or hematochezia. No nausea. No vomiting abdominal pain. She denies having any history of alcoholism. Denies taking any anticoagulation or nonsteroidal anti-inflammatory medication. No previous history of liver disease. Her last colonoscopy was done in 2008 and the patient had a polypectomy back then. The patient came into the emergency and she was feeling dizzy and weak and lightheaded. Her hemoglobin was as low as 6.4 and the patient received a total of 2 units of packed RBC and the follow-up hemoglobin is at 10.4. Platelet counts is at 181. Coagulation profile is within normal limits. Normal renal function. Occult stools for blood was positive. EGD was done today and she was not showing any acute abnormalities. There was duodenal ulceration without evidence of any acute bleeding. Meanwhile, the patient is on IV fluids and currently the fluids are in the form of lactated Ringer at the rate of 20 mL an hour. No altered mentation. No angina. Review of Systems Constitutional: Reports fatigue Eyes: denies as per HPI, denies blurred vision, denies bulging eye, denies decreased vision, denies diplopia, denies discharge, denies dry eye, denies irritation, denies itching, denies pain, denies photophobia, denies loss of peripheral vision, denies loss of vision, denies tunnel vision/blind spots Ears: deny: decreased hearing, ear discharge, earache, tinnitus Ears, nose, mouth and throat: Reports as per HPI Breasts: absent: as per HPI, change in shape, gynecomastia, masses, nipple discharge, pain, skin changes, swelling Cardiovascular: Reports as per HPI Respiratory: Reports as per HPI Gastrointestinal: Reports BRBPR, Reports hematochezia Genitourinary: Reports as per HPI Menstruation: Reports as per HPI Musculoskeletal: Reports as per HPI Musculoskeletal: absent: ankle pain, ankle stiffness, ankle swelling, as per HPI, elbow pain, elbow stiffness, elbow swelling, foot pain, foot stiffness, f oot swelling, hand pain, hand stiffness, hand swelling, hip pain, hip stiffness, hip swelling, knee pain, knee stiffness, knee swelling, shoulder pain, shoulder stiffness, shoulder swelling, wrist pain, wrist stiffness, wrist swelling Integumentary: Reports as per HPI Neurological: Reports as per HPI Psychiatric: Reports as per HPI Endocrine: Reports as per HPI Past Medical History Past Medical History: Cancer, Chest Pain / Angina Additional Past Medical History / Comment(s): angina, murmur,skin cancer, palpitations, vertigo, anemia- iron supplents, skin cancer, since 10-31-[address] care History of Any Multi-Drug Resistant Organisms: None Reported Past Surgical History: Appendectomy, Section, Heart Catheterization, Orthopedic Surgery, Tonsillectomy Additional Past Surgical History / Comment(s): cataract implants, colonos copy/polypectomy-benign,lt knee arthroscopy, rt wrist Past Anesthesia/Blood Transfusion Reactions: No Reported Reaction Additional Past Anesthesia/Blood Transfusion Reaction / Comment(s): clausterphobia Past Psychological History: No Psychological Hx Reported Smoking Status: Never smoker Past Alcohol Use History: None Reported Past Drug Use History: None Reported - Past Family History Father Family Medical History: Congestive Heart Failure (CHF) Mother Family Medical History: CVA/TIA Additional Family Medical History / Comment(s): grandmother has cervical cancer Medications and Allergies Home Medications Medication Instructions Recorded Confirmed Type Aspirin EC [Ecotrin Low Dose] 81 mg PO DAILY 09/16/18 04/02/21 History Calcium Carbonate [Calcium] 600 mg PO BID 09/16/18 04/02/21 History Cyanocobalamin (Vitamin B-12) 1,000 mcg PO DAILY 09/16/18 04/02/21 History [Vitamin B-12] Magnesium(Unknown Dose) 1 tab PO DAILY 09/16/18 04/02/21 History Multivitamins, Thera [Multivitamin 1 tab PO DAILY 09/16/18 04/02/21 History (formulary)] Vitamin B Complex 1 cap PO DAILY 09/16/18 04/02/21 History Tobra-Dexamet 0.3-0.1% Eye Oin 1 applic LEFT EYE BID 04/02/21 04/02/21 History [Tobradex Ophth Oint] Allergies Allergy/AdvReac Type Severity Reaction Status Date / Time latex Allergy Dyspnea/Itc Verified 04/02/21 09:43 rose mold Allergy Dyspnea/Rapid Verified 04/02/21 09:43 Heart Rate sulfamethoxazole Allergy Dyspnea Verified 04/02/21 09:43 [From Bactrim] trimethoprim [From Bactrim] Allergy Dyspnea Verified 04/02/21 09:43 amoxicillin [From Augmentin] AdvReac Dizziness Verified 04/02/21 09:43 ampicillin AdvReac Rapid Verified 04/02/21 09:43 Heart Rate casein AdvReac Vertigo/Ear Verified 04/02/21 09:43 Aches clavulanic acid AdvReac Dizziness Verified 04/02/21 09:43 [From Augmentin] codeine AdvReac Rapid Verified 04/02/21 09:43 Heart Rate/Migraine cortisone AdvReac Rapid Verified 04/02/21 09:43 Heart Rate/Migraine doxycycline AdvReac Rapid Verified 04/02/21 09:43 Heart Rate levofloxacin [From Levaquin] AdvReac Hallucinati Verified 04/02/21 09:43 ons naproxen [From Aleve] AdvReac Rapid Verified 04/02/21 09:43 Heart Rate Penicillins AdvReac Rapid Verified 04/02/21 09:43 Heart Rate soy AdvReac Diarrhea Verified 04/02/21 09:43 [id number]-[id number] Reductase AdvReac Jaundice Verified 04/02/21 09:43 Inhibitor sulphites Allergy Dyspnea/Itc Uncoded 03/11/21 22:12 rose "Most Antibiotics" AdvReac Rapid Uncoded 03/11/21 22:12 Heart Rate SUNSCREEN AdvReac WEAK & Uncoded 03/11/21 22:12 SHAKY Physical Exam Vitals: Vital Signs Temp Pulse Resp BP Pulse Ox 04/03/21 11:00 100 17 116/60 96 04/03/21 10:00 105 H 16 117/82 99 04/03/21 08:00 98.7 F 86 13 98/46 98 04/03/21 07:00 86 17 118/57 95 04/03/21 06:00 103 H 16 117/61 97 04/03/21 05:00 92 18 118/59 97 04/03/21 04:00 98.1 F 85 16 125/63 97 04/03/21 03:17 98.3 F 88 17 131/67 96 04/03/21 03:00 113 H 14 136/81 97 04/03/21 02:43 98.4 F 112 H 16 135/68 97 04/03/21 02:00 110 H 16 129/73 97 04/03/21 01:32 98.6 F 114 H 20 116/74 97 04/03/21 01:02 98.5 F 105 H 18 130/75 96 04/03/21 01:00 117 H 11 L 134/82 98 04/03/21 00:52 98.4 F 102 H 14 134/82 97 04/03/21 00:44 98.5 F 103 H 16 136/73 97 04/03/21 00:42 98.5 F 112 H 16 132/64 98 04/03/21 00:12 98.8 F 86 16 137/68 98 04/03/21 00:00 98.4 F 96 17 125/58 97 04/02/21 23:05 98.2 F 87 14 111/53 97 04/02/21 23:00 98.2 F 85 17 110/50 97 04/02/21 22:56 98.2 F 87 15 110/50 98 04/02/21 22:26 98.4 F 90 17 115/50 94 L 04/02/21 22:16 98.2 F 92 16 91/49 100 04/02/21 22:00 98.2 F 87 17 99/49 96 04/02/21 20:39 76 18 102/60 98 04/02/21 13:48 72 18 134/57 98 Intake and Output 04/02/21 04/03/21 04/03/21 22:59 06:59 14:59 Intake Total 0 1215 180 Output Total 500 800 Balance 0 715 -620 Intake: IV 100 Intake, IV Titration 235 80 Amount Lactated Ringers 1,000 ml 80 80 @ 20 mls/hr IV .Q24H RIANA Rx#:[id number] Sodium Chloride 0.9% 1, 155 000 ml @ 130 mls/hr IV . [id number] RIANA Rx#:[id number] Oral 50 Blood Product 0 930 Rc As-1 Unit 0 [id number] Rc As-1 Unit 0 310 [id number] Output: Urine 500 800 Other: Voiding Method External Catheter Bedpan # Voids 2 0 Weight 62.6 kg The patient appeared well nourished and normally developed. Vital signs as documented. Head exam is unremarkable. No scleral icterus or corneal arcus noted. Neck is without jugular venous distension, thyromegaly, or carotid bruits. Carotid upstrokes are brisk bilaterally. Lungs are clear to auscultation and percussion. Cardiac exam reveals the PMI to be normally sized and situated. Rhythm is regular. First and second heart sounds normal. No murmurs, rubs or gallops. Abdominal exam reveals normal bowel sounds, no masses, no organomegaly and no aortic enlargement. Extremities are nonedematous and both femoral and pedal pulses are normal.Examination of the skin revealed no evidence of significant rashes, suspicious appearing nevi or other concerning lesions.Neurologically, the patient is awake and alert and the patient does not have any focal neurological deficit. Cranial nerves are essentially intact. Results - Laboratory Findings CBC and BMP: 04/03/21 09:45 04/03/21 04:34 Abnormal lab findings: Abnormal Labs 04/02/21 04/02/21 04/02/21 09:56 09:56 16:35 RBC 2.50 L 1.94 L Hgb 8.1 L 6.4 L* D Hct 24.8 L 19.3 L* RDW Lymphocytes # 0.8 L Sodium 131 L Carbon Dioxide BUN 41 H Creatinine Glucose 108 H POC Glucose (mg/dL) Calcium AST 38 H Alkaline Phosphatase 32 L Total Protein 5.5 L Albumin 3.1 L Stool Occult Blood Crossmatch 04/02/21 04/02/21 04/03/21 18:21 21:53 04:34 RBC Hgb Hct RDW Lymphocytes # Sodium 130 L Carbon Dioxide 18 L BUN 28 H Creatinine 0.50 L Glucose POC Glucose (mg/dL) 130 H Calcium 8.0 L AST Alkaline Phosphatase Total Protein Albumin Stool Occult Blood Crossmatch See Detail 04/03/21 04/03/21 04/03/21 04:34 06:45 09:45 RBC 3.04 L 3.38 L Hgb 9.5 L D 10.4 L Hct 26.7 L 30.4 L RDW 17.9 H 17.9 H Lymphocytes # Sodium Carbon Dioxide BUN Creatinine Glucose POC Glucose (mg/dL) Calcium AST Alkaline Phosphatase Total Protein Albumin Stool Occult Blood Positive H Crossmatch - Diagnostic Findings Chest x-ray: image reviewed Assessment and Plan Plan: 1 acute lower GI bleed, rule out diverticular bleed. Awaiting colonoscopy. 2 acute blood loss anemia, transfused with a total of 2 units of packed RBC and hemoglobin currently is above 10 and the patient is hemodynamically stable 3 history of iron deficiency anemia 4 duodenal ulceration without any evidence of acute bleeding. Please refer to the results of the EGD Plan The patient is stable for now. The patient can be transferred out of the intensive care unit. Watch for any further bouts of GI bleed. Colonoscopy is scheduled for tomorrow by general surgery. Monitor hemoglobin. Clinically stable. Hemodynamically stable. Transfer out of the intensive care units. Continue IV heparin. Allow clear liquids till the patient undergoes a colonoscopy tomorrow.
[2021-04-03] MEDS ORDERED: NON FORMULARY DRUG (Vitamin B Complex [Vitamin B Complex] 1 EACH Capsule) PO SCH (12:45)
--- NOTE | 2021-04-03 13:46 | P.GSHP ---
History of Present Illness H&P Date: 04/02/21 (late entry patient was seen on 04/02/21 at 1330) CHIEF COMPLAINT: Dizziness, GI bleed HISTORY OF PRESENT ILLNESS: This is a 75-year-old female who presented to the emergency department with complaints of dizziness and weakness. Patient states she was feeling so dizzy she was having a difficult time standing up, she states she had called EMS and she was brought to the emergency department for further evaluation. While being in the emergency department she started having loose bowels which were dark, maroon colored with blood clots. She denies any previous history of GI bleed. She denies any previous history of peptic ulcer disease, blood thinners or NSAIDs use. She has no previous history of EGD. She does states that she had a colonoscopy in [address] Kirby significant for polypectomy. She states that she recently ate some undercooked chicken. She denies any fever, chills, nausea,vomiting or abdominal pain. Bowel patterns are normal at home with no reported melena or hematochezia. She has had 2-3 loose bowel movements since being in the emergency department. She's been afebrile. Admitting labs WBC 7.0 hemoglobin 8.1 platelet count 239,000 sodium 131 potassium 4.7 41 creatinine 0.69 total bilirubin 0.3 AST 38 ALT 20 alkaline phosphatase 32 albumin 3.1 PAST MEDICAL HISTORY: Angina, skin cancer, endometriosis PAST SURGICAL HISTORY: Appendectomy, section, heart catheterization, orthopedic surgery, tonsillectomy, colonoscopy/polypectomy 2008 SOCIAL HISTORY: No illicit drug use. REVIEW OF SYSTEMS: CONSTITUTIONAL: Denies fever or chills. Dizziness. Weakness. HEENT: Denies blurred vision, vision changes, or eye pain. Denies hemoptysis CARDIOVASCULAR: Denies chest pain or pressure. RESPIRATORY: No shortness of breath. GASTROINTESTINAL: See HPI for pertinent findings HEMATOLOGIC: Denies bleeding disorders. GENITOURINARY: Denies any blood in urine or increased urinary frequency. SKIN: Denies pruitis. Denies rash. PHYSICAL EXAM: VITAL SIGNS: Reviewed GENERAL: Well-developed in no acute distress. HEENT: No sclera icterus. Extraocular movements grossly intact. Moist buccal mucosa. Head is atraumatic, normocephalic. No nasal drainage. ABDOMEN: Soft.. Nondistended. Nondistended. NEUROLOGIC: Alert and oriented. Cranial nerves II through XII grossly intact. LABORATORY DATA: WBC 7.0 hemoglobin 8.1 platelet count 239,000 sodium 131 potassium 4.7 41 creatinine 0.69 Total bilirubin 0.3 AST 38 ALT 20 alkaline phosphatase 32 albumin 3.1 IMAGING: No imaging completed ASSESSMENT: 1. GI bleed 2. Dizziness/weakness 3. Anemia PLAN: 1. Repeat CBC, BMP in the morning 2. Patient may have clear liquid diet, nothing by mouth after midnight 3. Protonix 40 mg twice a day 4. Stool cultures ordered 5. Patient scheduled for EGD tomorrow, procedure discussed with patient including risks and benefits. Patient willing to proceed. The impression and plan of care has been dictated as directed. Dr. Pepe I performed a history and examination of this patient, discussed the same with the dictator. I agree with the dictator's note ,documented as a scribe. Any additional findings or plans will be noted. Past Medical History Past Medical History: Cancer, Chest Pain / Angina Additional Past Medical History / Comment(s): angina, murmur,skin cancer, palpitations, vertigo, anemia- iron supplents, skin cancer, since 10-31-[address] care History of Any Multi-Drug Resistant Organisms: None Reported Past Surgical History: Appendectomy, Section, Heart Catheterization, Orthopedic Surgery, Tonsillectomy Additional Past Surgical History / Comment(s): cataract implants, colonoscopy/polypectomy-benign,lt knee arthroscopy, rt wrist Past Anesthesia/Blood Transfusion Reactions: No Reported Reaction Additional Past Anesthesia/Blood Transfusion Reaction / Comment(s): c lausterphobia Past Psychological History: No Psychological Hx Reported Smoking Status: Never smoker Past Alcohol Use History: None Reported Past Drug Use History: None Reported - Past Family History Father Family Medical History: Congestive Heart Failure (CHF) Mother Family Medical History: CVA/TIA Additional Family Medical History / Comment(s): grandmother has cervical cancer Medications and Allergies Home Medications Medication Instructions Recorded Confirmed Type Aspirin EC [Ecotrin Low Dose] 81 mg PO DAILY 09/16/18 04/02/21 History Calcium Carbonate [Calcium] 600 mg PO BID 09/16/18 04/02/21 History Cyanocobalamin (Vitamin B-12) 1,000 mcg PO DAILY 09/16/18 04/02/21 History [Vitamin B-12] Magnesium(Unknown Dose) 1 tab PO DAILY 09/16/18 04/02/21 History Multivitamins, Thera [Multivitamin 1 tab PO DAILY 09/16/18 04/02/21 History (formulary)] Vitamin B Complex 1 cap PO DAILY 09/16/18 04/02/21 History Tobra-Dexamet 0.3-0.1% Eye Oin 1 applic LEFT EYE BID 04/02/21 04/02/21 History [Tobradex Ophth Oint] Allergies Allergy/AdvReac Type Severity Reaction Status Date / Time latex Allergy Dyspnea/Itc Verified 04/02/21 09:43 rose mold Allergy Dyspnea/Rapid Verified 04/02/21 09:43 Heart Rate sulfamethoxazole Allergy Dyspnea Verified 04/02/21 09:43 [From Bactrim] trimethoprim [From Bactrim] Allergy Dyspnea Verified 04/02/21 09:43 amoxicillin [From Augmentin] AdvReac Dizziness Verified 04/02/21 09:43 ampicillin AdvReac Rapid Verified 04/02/21 09:43 Heart Rate casein AdvReac Vertigo/Ear Verified 04/02/21 09:43 Aches clavulanic acid AdvReac Dizziness Verified 04/02/21 09:43 [From Augmentin] codeine AdvReac Rapid Verified 04/02/21 09:43 Heart Rate/Migraine cortisone AdvReac Rapid Verified 04/02/21 09:43 Heart Rate/Migraine doxycycline AdvReac Rapid Verified 04/02/21 09:43 Heart Rate levofloxacin [From Levaquin] AdvReac Hallucinati Verified 04/02/21 09:43 ons naproxen [From Aleve] AdvReac Rapid Verified 04/02/21 09:43 Heart Rate Penicillins AdvReac Rapid Verified 04/02/21 09:43 Heart Rate soy AdvReac Diarrhea Verified 04/02/21 09:43 Amaffpc-Hjc-Kso Reductase AdvReac Jaundice Verified 04/02/21 09:43 Inhibitor sulphites Allergy Dyspnea/Itc Uncoded 03/11/21 22:12 rose "Most Antibiotics" AdvReac Rapid Uncoded 03/11/21 22:12 Heart Rate SUNSCREEN AdvReac WEAK & Uncoded 03/11/21 22:12 SHAKY Surgical - Exam Vital Signs Temp Pulse Resp BP Pulse Ox 97.5 F L 89 20 143/65 100 04/02/21 08:53 04/02/21 08:53 04/02/21 08:53 04/02/21 08:53 04/02/21 08:53 Results - Labs 04/03/21 09:45 04/03/21 04:34 Abnormal Lab Results - Last 24 Hours (Table) 04/02/21 04/02/21 04/02/21 Range/Units 16:35 18:21 21:53 RBC 1.94 L (3.80-5.40) m/uL Hgb 6.4 L* D (11.4-16.0) gm/dL Hct 19.3 L* (34.0-46.0) % RDW (11.5-15.5) % Sodium (137-145) mmol/L Carbon Dioxide (22-30) mmol/L BUN (7-17) mg/dL Creatinine (0.52-1.04) mg/dL POC Glucose (mg/dL) 130 H (75-99) mg/dL Calcium (8.4-10.2) mg/dL Stool Occult Blood (Negative) Crossmatch See Detail 04/03/21 04/03/21 04/03/21 Range/Units 04:34 04:34 06:45 RBC 3.04 L (3.80-5.40) m/uL Hgb 9.5 L D (11.4-16.0) gm/dL Hct 26.7 L (34.0-46.0) % RDW 17.9 H (11.5-15.5) % Sodium 130 L (137-145) mmol/L Carbon Dioxide 18 L (22-30) mmol/L BUN 28 H (7-17) mg/dL Creatinine 0.50 L (0.52-1.04) mg/dL POC Glucose (mg/dL) (75-99) mg/dL Calcium 8.0 L (8.4-10.2) mg/dL Stool Occult Blood Positive H (Negative) Crossmatch 04/03/21 Range/Units 09:45 RBC 3.38 L (3.80-5.40) m/uL Hgb 10.4 L (11.4-16.0) gm/dL Hct 30.4 L (34.0-46.0) % RDW 17.9 H (11.5-15.5) % Sodium (137-145) mmol/L Carbon Dioxide (22-30) mmol/L BUN (7-17) mg/dL Creatinine (0.52-1.04) mg/dL POC Glucose (mg/dL) (75-99) mg/dL Calcium (8.4-10.2) mg/dL Stool Occult Blood (Negative) Crossmatch Microbiology - Last 24 Hours (Table) 04/03/21 06:45 Stool Culture - Preliminary Stool Diabetes panel 04/03/21 Range/Units 04:34 Sodium 130 L (137-145) mmol/L Potassium 4.2 (3.5-5.1) mmol/L Chloride 107 (98-107) mmol/L Carbon Dioxide 18 L (22-30) mmol/L BUN 28 H (7-17) mg/dL Creatinine 0.50 L (0.52-1.04) mg/dL Glucose 99 (74-99) mg/dL Calcium 8.0 L (8.4-10.2) mg/dL Calcium panel 04/03/21 Range/Units 04:34 Calcium 8.0 L (8.4-10.2) mg/dL Pituitary panel 04/03/21 Range/Units 04:34 Sodium 130 L (137-145) mmol/L Potassium 4.2 (3.5-5.1) mmol/L Chloride 107 (98-107) mmol/L Carbon Dioxide 18 L (22-30) mmol/L BUN 28 H (7-17) mg/dL Creatinine 0.50 L (0.52-1.04) mg/dL Glucose 99 (74-99) mg/dL Calcium 8.0 L (8.4-10.2) mg/dL Adrenal panel 04/03/21 Range/Units 04:34 Sodium 130 L (137-145) mmol/L Potassium 4.2 (3.5-5.1) mmol/L Chloride 107 (98-107) mmol/L Carbon Dioxide 18 L (22-30) mmol/L BUN 28 H (7-17) mg/dL Creatinine 0.50 L (0.52-1.04) mg/dL Glucose 99 (74-99) mg/dL Calcium 8.0 L (8.4-10.2) mg/dL
[2021-04-03] MEDS: TOBRA-DEXAMET 0.3-0.1% OPHTH OINT 3.5 GM TUBE LEFT EYE SCH ×2 (14:42→21:17)
[2021-04-03 16:48] LABS: Anisocytosis Slight; Basophils # (A) 0.1 k/uL (0-0.2); Basophils % (A) 1 %; Eosinophils # (A) 0.4 k/uL (0-0.7); Eosinophils % (A) 4 %; HCT 32.9 % (34.0-46.0); HGB 11.1 gm/dL (11.4-16.0); Lymphocytes # (A) 2.2 k/uL (1.0-4.8); Lymphocytes % (A) 23 %; MCH 30.8 pg (25.0-35.0); MCHC 33.8 g/dL (31.0-37.0); Mean Platelet Volume 7.2; Monocytes # (A) 0.5 k/uL (0-1.0); Monocytes % (A) 5 %; Neutrophils % (A) 64 %; Platelet Count 207 k/uL (150-450); Poikilocytosis Slight; RBC 3.61 m/uL (3.80-5.40); WBC 9.4 k/uL (3.8-10.6)
[2021-04-03] MEDS: PANTOPRAZOLE 40 MG TABLET PO SCH (18:20)
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
[2021-04-04 04:14] LABS: African American GFR (CKD) >90 (>60 ml/min/1.73 sqM); Anion Gap 4 mmol/L; Blood Urea Nitrogen 12 mg/dL (7-17); Calcium 8.2 mg/dL (8.4-10.2); Carbon Dioxide 25 mmol/L (22-30); Chloride 106 mmol/L (98-107); Glucose 88 mg/dL (74-99); Non-African American GFR(CKD) 87 (>60 ml/min/1.73 sqM); Potassium 3.9 mmol/L (3.5-5.1); Sodium 135 mmol/L (137-145)
[2021-04-04 04:23] LABS: Anisocytosis Slight; HCT 25.2 % (34.0-46.0); MCH 30.6 pg (25.0-35.0); MCHC 33.7 g/dL (31.0-37.0); MCV 90.8 fL (80.0-100.0); Mean Platelet Volume 7.6; Platelet Count 157 k/uL (150-450); Poikilocytosis Slight; RBC 2.77 m/uL (3.80-5.40); RDW 17.8 % (11.5-15.5); WBC 5.8 k/uL (3.8-10.6)
[2021-04-04 04:29] LABS: HGB 8.5 gm/dL (11.4-16.0)
[2021-04-04] MEDS: PANTOPRAZOLE 40 MG TABLET PO SCH ×2 (06:45→17:57)
--- NOTE | 2021-04-04 08:31 | P.PN ---
Subjective Progress Note Date: 04/04/21 75-year-old female patient was being seen in follow-up regarding her ongoing her ongoing lower GI bleed. He underwent an EGD yesterday and no bleeding source in the upper GI tract. Note that the patient is having maroon color stool and diverticular bleed is suspected. During her bowel prep yesterday, the patient had another bout of large bloody bowel movements. There was a drop in hemoglobin down to 8.5 after her hemoglobin came up to 11.1. She was not symptomatic along with that. She did not encounter any chest pain dizziness or shortness of breath. She remains on IV fluids with lactated Ringer at the rate of 20 mL an hour. She has not received any blood transfusion following her last bleed. The plan is to proceed with a colonoscopy today by general surgery. Otherwise, she is doing well. White cell count is at 5.8. Platelets are stable. Electrodes are stable. She is on IV Protonix. She is nothing by mouth this morning. No nausea. No emesis. No hematemesis. No other significant events overnight. Objective - Vital Signs Vital signs: Vital Signs Temp 98.1 F 04/04/21 02:00 Pulse 89 04/04/21 02:00 Resp 12 04/04/21 02:00 BP 109/54 04/04/21 02:00 Pulse Ox 99 04/04/21 02:00 Intake & Output 04/03/21 04/04/21 04/04/21 18:59 06:59 18:59 Intake Total 320 240 Output Total 1200 1900 Balance -880 -1660 Intake: IV 240 240 Lactated Ringers 1,000 ml 140 240 @ 20 mls/hr IV .Q24H [facility] Rx#:[id number] Intake, IV Titration 80 Amount Lactated Ringers 1,000 ml 80 @ 20 mls/hr IV .Q24H [facility] Rx#:[id number] Output: Urine 1200 900 Stool 1000 Other: Voiding Method Bedpan Bedside Commode Bedpan # Voids 0 2 - Exam The patient appeared well nourished and normally developed. Vital signs as documented. Head exam is unremarkable. No scleral icterus or corneal arcus noted. Neck is without jugular venous distension, thyromegaly, or carotid bruits . Carotid upstrokes are brisk bilaterally. Lungs are clear to auscultation and percussion. Cardiac exam reveals the PMI to be normally sized and situated. Rhythm is regular. First and second heart sounds normal. No murmurs, rubs or gallops. Abdominal exam reveals normal bowel sounds, no masses, no organomegaly and no aortic enlargement. Extremities are nonedematous and both femoral and pedal pulses are normal.Examination of the skin revealed no evidence of significant rashes, suspicious appearing nevi or other concerning lesions.Neurologically, the patient is awake and alert and the patient does not have any focal neurological deficit. Cranial nerves are essentially intact. - Labs CBC & Chem 7: 04/04/21 03:22 04/04/21 03:22 Labs: Abnormal Lab Results - Last 24 Hours (Table) 04/03/21 04/03/21 04/04/21 Range/Units 09:45 16:13 03:22 RBC 3.38 L 3.61 L 2.77 L (3.80-5.40) m/uL Hgb 10.4 L 11.1 L 8.5 L D (11.4-16.0) gm/dL Hct 30.4 L 32.9 L 25.2 L (34.0-46.0) % RDW 17.9 H 18.0 H 17.8 H (11.5-15.5) % Sodium (137-145) mmol/L Calcium (8.4-10.2) mg/dL 04/04/21 Range/Units 03:22 RBC (3.80-5.40) m/uL Hgb (11.4-16.0) gm/dL Hct (34.0-46.0) % RDW (11.5-15.5) % Sodium 135 L (137-145) mmol/L Calcium 8.2 L (8.4-10.2) mg/dL Microbiology - Last 24 Hours (Table) 04/03/21 06:45 Stool Culture - Preliminary Stool Assessment and Plan Plan: 1 acute lower GI bleed, rule out diverticular bleed. Awaiting colonoscopy. The patient had another bout of bleed overnight was receiving her bowel prep. Hemoglobin currently is down to 8.5. Hemodynamically stable. Awaiting colonoscopy. 2 acute blood loss anemia, transfused with a total of 2 units of packed RBC and hemoglobin currently her hemoglobin is at 8.5 3 history of iron deficiency anemia 4 duodenal ulceration without any evidence of acute bleeding. Please refer to the results of the EGD Plan Keep the patient intensive care unit until the patient undergoes her colonoscopy. Increase his IV fluids up to 100 mL an hour Keep nothing by mouth for now IV Protonix We'll follow
[2021-04-04] MEDS: CYANOCOBALAMIN 500 MCG TAB PO SCH ×3 (08:38→08:40)
[2021-04-04] MEDS: TOBRA-DEXAMET 0.3-0.1% OPHTH OINT 3.5 GM TUBE LEFT EYE SCH ×2 (08:39→20:35)
--- NOTE | 2021-04-04 10:36 | XR ---
EXAMINATION TYPE: XR chest 1V portable DATE OF EXAM: 04/04/2021 COMPARISON: Chest x-ray 09/16/2018 HISTORY: COPD TECHNIQUE: Single frontal view of the chest is obtained. FINDINGS: There is no focal air space opacity, pleural effusion, or pneumothorax seen. The cardiac silhouette size is within normal limits. There are interstitial changes scattered within the lungs bi laterally. The osseous structures are intact, degenerative disc changes are present in the visualize d spine, is a slight spinal curvature, prominent lung volumes are consistent with underlying emphysem a. Bone mineralization is reduced. IMPRESSION: Suspect underlying interstitial lung disease. Additional findings above.
[2021-04-04] MEDS ORDERED: IV FLUID CONTINUATION 700 ML IV ONE (14:32)
[2021-04-04] MEDS ORDERED: PROPOFOL 10 MG/ML 20 ML VIAL IV ONE (14:40)
--- NOTE | 2021-04-04 14:58 | P.OP ---
Date of Procedure: 04/04/21 Preoperative Diagnosis: GI bleed Postoperative Diagnosis: Diverticulosis Procedure(s) Performed: Colonoscopy Anesthesia: MAC Surgeon: Jm Pepe Pathology: none sent Condition: stable Disposition: PACU Description of Procedure: Patient's placed on the endoscopy table in the lateral position. She received IV sedation. Digital rectal exam was performed which revealed no ebonized. The flexible colonoscope was then placed patient anus passed throughout the entire colon. The ileocecal valve was visualized. Cecum, ascending and transverse colon appeared normal. In the descending; there is extensive diverticular changes. Scope summer back the rectum and this appeared normal. Scope. There is no evidence of any blood in the colon. The presumed that her GI bleed was due to diverticular bleed.
[2021-04-04] MEDS: LACTATED RINGERS 1,000 ML IV SCH ×2 (16:00→23:32)
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
[2021-04-05 07:45] LABS: Anisocytosis Slight; Basophils % (A) 1 %; Eosinophils # (A) 0.4 k/uL (0-0.7); Eosinophils % (A) 7 %; HCT 26.9 % (34.0-46.0); Lymphocytes # (A) 1.5 k/uL (1.0-4.8); Lymphocytes % (A) 26 %; MCH 30.6 pg (25.0-35.0); MCHC 33.5 g/dL (31.0-37.0); MCV 91.4 fL (80.0-100.0); Mean Platelet Volume 7.1; Monocytes # (A) 0.3 k/uL (0-1.0); Monocytes % (A) 6 %; Neutrophils # (A) 3.3 k/uL (1.3-7.7); Neutrophils % (A) 59 %; Platelet Count 202 k/uL (150-450); RBC 2.94 m/uL (3.80-5.40); RDW 17.2 % (11.5-15.5); WBC 5.7 k/uL (3.8-10.6)
[2021-04-05 07:47] VITALS: RESP 18; TEMP 98.2
[2021-04-05] MEDS: TOBRA-DEXAMET 0.3-0.1% OPHTH OINT 3.5 GM TUBE LEFT EYE SCH (07:49)
[2021-04-05] MEDS: PANTOPRAZOLE 40 MG TABLET PO SCH ×2 (07:49→15:39)
[2021-04-05] MEDS: CYANOCOBALAMIN 500 MCG TAB PO SCH (07:49)
--- NOTE | 2021-04-05 13:33 | P.PN ---
Subjective Progress Note Date: 04/05/21 75-year-old female patient was being seen in follow-up regarding her ongoing her ongoing lower GI bleed. He underwent an EGD yesterday and no bleeding source in the upper GI tract. Note that the patient is having maroon color stool and diverticular bleed is suspected. During her bowel prep yesterday, the patient had another bout of large bloody bowel movements. There was a drop in hemoglobin down to 8.5 after her hemoglobin came up to 11.1. She was not symptomatic along with that. She did not encounter any chest pain dizziness or shortness of breath. She remains on IV fluids with lactated Ringer at the rate of 20 mL an hour. She has not received any blood transfusion following her last bleed. The plan is to proceed with a colonoscopy today by general surgery. Otherwise, she is doing well. White cell count is at 5.8. Platelets are stable. Electrodes are stable. She is on IV Protonix. She is nothing by mouth this morning. No nausea. No emesis. No hematemesis. No other significant events overnight. On 04/05/2021 patient seen in follow-up on medical surgical floor, she was transferred out of ICU yesterday on 04/04/2021, no acute issues overnight, today's hemoglobin is 9.0, patient did receive 2 units of packed red blood cells this admission, hemodynamically she remains stable, no active bleeding overnight. Patient had her colonoscopy and no active source of bleeding was identified. And it was presumed that her GI bleed was due to diverticular bleed. Patient is still receiving IV fluids at 0.9 normal saline at a rate of 100 ML per hour, she is voiding, she is tolerating regular diet. No abdominal pain, no further evidence of blood in the stool. Objective - Vital Signs Vital signs: Vital Signs Temp 98.2 F 04/05/21 07:47 Pulse 72 04/05/21 07:47 Resp 18 04/05/21 07:47 BP 125/65 04/05/21 07:47 Pulse Ox 98 04/05/21 07:47 Intake & Output 04/04/21 04/05/21 04/05/21 18:59 06:59 18:59 Intake Total 1020 Output Total 500 Balance 520 Intake: IV 1020 Lactated Ringers 1,000 ml 820 @ 100 mls/hr IV .Q10H [facility] Rx#:[id number] Output: Urine 500 Other: Voiding Method Bedside Commode Bedside Commode # Voids 1 5 - Exam GENERAL EXAM: Alert, very pleasant, 75-year-old white female, on room air comfortable in no apparent distress. HEAD: Normocephalic/atraumatic. EYES: Normal reaction of pupils, equal size. Conjunctiva pink, sclera white. NOSE: Clear with pink turbinates. THROAT: No erythema or exudates. NECK: No masses, no JVD, no thyroid enlargement, no adenopathy. CHEST: No chest wall deformity. Symmetrical expansion. LUNGS: Equal air entry with no crackles, wheeze, rhonchi or dullness. CVS: Regular rate and rhythm, normal S1 and S2, no gallops, no murmurs, no rubs ABDOMEN: Soft, nontender. No hepatosplenomegaly, normal bowel sounds, no guarding or rigidity. EXTREMITIES: No clubbing, no edema, no cyanosis, 2+ pulses and upper and lower extremities. MUSCULOSKELETAL: Muscle strength and tone normal. SPINE: No scoliosis or deformity SKIN: No rashes CENTRAL NERVOUS SYSTEM: Alert and oriented -3. No focal deficits, tone is normal in all 4 extremities. PSYCHIATRIC: Alert and oriented -3. Appropriate affect. Intact judgment and insight. - Labs CBC & Chem 7: 04/05/21 06:56 04/04/21 03:22 Labs: Abnormal Lab Results - Last 24 Hours (Table) 04/05/21 Range/Units 06:56 RBC 2.94 L (3.80-5.40) m/uL Hgb 9.0 L (11.4-16.0) gm/dL Hct 26.9 L (34.0-46.0) % RDW 17.2 H (11.5-15.5) % Microbiology - Last 24 Hours (Table) 04/03/21 06:45 Stool Culture - Preliminary Stool Assessment and Plan Plan: Assessment: 1 acute lower GI bleed, rule out diverticular bleed. Awaiting colonoscopy. The patient had another bout of bleed overnight was receiving her bowel prep. Hemoglobin currently is down to 9.0. Hemodynamically stable. Patient had a colonoscopy today, please refer to the report, no active source of bleeding was seen, this was presumed to be a diverticular bleed 2 acute blood loss anemia, transfused with a total of 2 units of packed RBC and hemoglobin currently her hemoglobin is at 8.5 3 history of iron deficiency anemia 4 duodenal ulceration without any evidence of acute bleeding. Please refer to the results of the EGD plan: No evidence of ongoing GI bleeding hemodynamically stable PUlmonary/critical care service will sign of and follow as needed I performed a history & physical examination of the patient and discussed their management with my nurse practitioner, America Bello. I reviewed the nurse practitioner's note and agree with the documented findings and plan of care. Lung sounds are positive for diminished breaths throughout the lung napoles. The findings and the impression was discussed with the patient. I attest to the documentation by the nurse practitioner. Time with Patient: Less than 30
[2021-04-05 13:39] VITALS: BP 127/65; PULSE 84
[2021-04-05] MEDS: LACTATED RINGERS 1,000 ML IV SCH (14:23)
--- NOTE | 2021-04-05 14:31 | P.DS ---
Providers Date of admission: 04/02/21 12:26 Expected date of discharge: 04/05/21 Attending physician: Jm Pepe Consults: 04/02/21 12:23 Consult Physician Routine Consulting Provider: Vlad Sandoval Consult Reason/Comments: medicine consult Do you want consulting provider notified?: Yes 04/02/21 19:39 Consult Physician Routine Consulting Provider: Pardeep Solomon Consult Reason/Comments: ICU management Do you want consulting provider notified?: Already Contacted Primary care physician: [facility] Course: Discharge diagnosis 1. Acute GI bleed likely secondary to diverticular bleed 2. Acute blood loss anemia secondary to GI bleed 3. Duodenal ulcer Hospital course This is a 75-year-old female who presented with dark maroon-colored stools with blood clots. She was anemic. She did require blood transfusion during her admission. She underwent EGD which has shown a duodenal ulcer and colonoscopy that showed diverticulosis. Patient's bleeding has resolved. Hemoglobin is stable. She is tolerating diet. Denies any abdominal pain. She is up and ambulating. She will be discharged home with Protonix. She is educated to continue Benefiber daily [id number]. Patient been cleared by medical service. Patient is stable for discharge. Please refer to chart for any further details. Physician Office Secretary note has been reviewed by physician. Signing provider agrees with the documented findings, assessment, and plan of care. Patient Condition at Discharge: Stable Plan - Discharge Summary Discharge Rx Participant: Yes New Discharge Prescriptions: New Pantoprazole [Protonix] 40 mg PO AC-BID #60 tab Continue Vitamin B Complex 1 cap PO DAILY Magnesium(Unknown Dose) 1 tab PO DAILY Cyanocobalamin (Vitamin B-12) [Vitamin B-12] 1,000 mcg PO DAILY Multivitamins, Thera [Multivitamin (formulary)] 1 tab PO DAILY Calcium Carbonate [Calcium] 600 mg PO BID Tobra-Dexamet 0.3-0.1% Eye Oin [Tobradex Ophth Oint] 1 applic LEFT EYE BID Discontinued Aspirin EC [Ecotrin Low Dose] 81 mg PO DAILY Discharge Medication List Calcium Carbonate [Calcium] 600 mg PO BID 09/16/18 [History] Cyanocobalamin (Vitamin B-12) [Vitamin B-12] 1,000 mcg PO DAILY 09/16/18 [History] Magnesium(Unknown Dose) 1 tab PO DAILY 09/16/18 [History] Multivitamins, Thera [Multivitamin (formulary)] 1 tab PO DAILY 09/16/18 [History] Vitamin B Complex 1 cap PO DAILY 09/16/18 [History] Tobra-Dexamet 0.3-0.1% Eye Oin [Tobradex Ophth Oint] 1 applic LEFT EYE BID 04/02/21 [History] Pantoprazole [Protonix] 40 mg PO AC-BID #60 tab 04/05/21 [Rx] Follow up Appointment(s)/Referral(s): Jayson Hu DO [Primary Care Provider] - 1-2 days (office will call pt with appointment date and time ) [facility], [NON-STAFF] - ([facility] will call you to set up your first home Physical Therapy appointment. ) Jm Pepe MD [STAFF PHYSICIAN] - 04/17/21 1:45 pm Patient Instructions/Handouts: Gastrointestinal Bleeding (DC) Activity/Diet/Wound Care/Special Instructions: Take Benefiber [id number] daily Discharge Disposition: HOME SELF-CARE
== END 2021-04-05 15:58 | disposition home or self-care (01) | DRG 378 ==
LOC: EC 08:43 → 3SCARD 12:26 → 2SICU 19:09 → 4SSUR 04-04 16:52
PROVIDERS: ADMIT Surgery; ATTEND Surgery
PROC: 30233N1 Transfusion of Nonautologous Red Blood Cells into Peripheral Vein, Percutaneous Approach (ICD-10-PCS; 2021-04-02)
PROC: 0DB98ZX Excision of Duodenum, Via Natural or Artificial Opening Endoscopic, Diagnostic (ICD-10-PCS; principal; 2021-04-03 08:10)
PROC: 0DJD8ZZ Inspection of Lower Intestinal Tract, Via Natural or Artificial Opening Endoscopic (ICD-10-PCS; 2021-04-04)
DX: K57.31 Diverticulosis of large intestine without perforation or abscess with bleeding (principal); D62 Acute posthemorrhagic anemia; E87.1 Hypo-osmolality and hyponatremia; E87.2 Acidosis; K26.4 Chronic or unspecified duodenal ulcer with hemorrhage; R00.0 Tachycardia, unspecified; T39.395A Adverse effect of other nonsteroidal anti-inflammatory drugs [NSAID], initial encounter; R53.1 Weakness; F43.9 Reaction to severe stress, unspecified; D50.9 Iron deficiency anemia, unspecified; Z20.822 Contact with and (suspected) exposure to COVID-19; Z85.41 Personal history of malignant neoplasm of cervix uteri; Z85.828 Personal history of other malignant neoplasm of skin; Z79.82 Long term (current) use of aspirin; Z87.891 Personal history of nicotine dependence; Z92.3 Personal history of irradiation; Z88.6 Allergy status to analgesic agent; Z88.4 Allergy status to anesthetic agent; Z88.1 Allergy status to other antibiotic agents; Z88.5 Allergy status to narcotic agent; Z88.0 Allergy status to penicillin; Z91.040 Latex allergy status; Z90.49 Acquired absence of other specified parts of digestive tract; Z96.1 Presence of intraocular lens; Z86.010 Personal history of colon polyps; Z92.21 Personal history of antineoplastic chemotherapy; Z80.49 Family history of malignant neoplasm of other genital organs; Z82.49 Family history of ischemic heart disease and other diseases of the circulatory system
CPT/HCPCS: 36415; 43239; 45378; 71045; 80048; 80053; 81003; 82272; 83605; 83735; 85025; 85027; 86850; 86900; 86901; 86920; 87045; 87046; 87635; 88305; 93005; 99285

== ENCOUNTER 2023-10-13 10:09 | Emergency (ER) | payer MEDICARE, OTHER ==
--- NOTE | 2023-10-13 10:56 | ED ---
Psych HPI - General Source: police, RN notes reviewed, old records reviewed Mode of arrival: ambulatory Limitations: altered mental status, physical limitation - History of Present Illness MD Complaint: altered mental status, other (Delirium) Associated Psychiatric Symptoms: none History of same: Yes Quality: constant Improves With: none Worsens With: none Context: not taking psychiatric medications, significant life stressor Associated Symptoms: confusion Treatments Prior to Arrival: placed on mental health hold <Uzair Ruth - Last Filed: 10/13/23 12:30> <Jamie Hood - Last Filed: 10/13/23 17:41> - General Chief Complaint: Psychiatric Symptoms Stated Complaint: Mental Health Time Seen by Provider: 10/13/23 10:31 - History of Present Illness Initial Comments: This is an 78-year-old female presenting acutely psychotic, patient is having significant delusions and delirium, coupled with hallucinations. Patient comes here for safe sleeping. No history of current suicidal or homicidal thoughts (Uzair Ruth) - Related Data Home Medications Medication Instructions Recorded Confirmed No Known Home Medications 04/03/23 10/13/23 Allergies Allergy/AdvReac Type Severity Reaction Status Date / Time latex Allergy Dyspnea/Itc Verified 10/13/23 12:33 rose mold Allergy Dyspnea/Rapid Verified 10/13/23 12:33 Heart Rate sulfamethoxazole Allergy Dyspnea Verified 10/13/23 12:33 [From Bactrim] trimethoprim [From Bactrim] Allergy Dyspnea Verified 10/13/23 12:33 amoxicillin [From Augmentin] AdvReac Dizziness Verified 10/13/23 12:33 ampicillin AdvReac Rapid Verified 10/13/23 12:33 Heart Rate clavulanic acid AdvReac Dizziness Verified 10/13/23 12:33 [From Augmentin] codeine AdvReac Rapid Verified 10/13/23 12:33 Heart Rate/Migraine cortisone AdvReac Rapid Verified 10/13/23 12:33 Heart Rate/Migraine doxycycline AdvReac Rapid Verified 10/13/23 12:33 Heart Rate levofloxacin [From Levaquin] AdvReac Hallucinati Verified 10/13/23 12:33 ons naproxen [From Aleve] AdvReac Rapid Verified 10/13/23 12:33 Heart Rate Penicillins AdvReac Rapid Verified 10/13/23 12:33 Heart Rate soy AdvReac Diarrhea Verified 10/13/23 12:33 Azbbtat-FNX-BnN Reductase AdvReac Jaundice Verified 10/13/23 12:33 Inhibitor [Yphbtkl-Lbu-Vmn Reductase Inhibitor] sulphites Allergy Dyspnea/Itc Uncoded 10/13/23 12:33 rose "Most Antibiotics" AdvReac Rapid Uncoded 10/13/23 12:33 Heart Rate SUNSCREEN AdvReac WEAK & Uncoded 10/13/23 12:33 FUNMILAYO Review of Systems ROS Other: All systems not noted in ROS Statement are negative. <Uzair Ruth - Last Filed: 10/13/23 12:30> ROS Other: All systems not noted in ROS Statement are negative. <Jamie Hood - Last Filed: 10/13/23 17:41> ROS Statement: Those systems with pertinent positive or pertinent negative responses have been documented in the HPI. Past Medical History Past Medical History: Cancer, Chest Pain / Angina Additional Past Medical History / Comment(s): angina, murmur,skin cancer, palpitations, vertigo, anemia- iron supplents, skin cancer, since 10-31-[address] care History of Any Multi-Drug Resistant Organisms: None Reported Past Surgical History: Appendectomy, Section, Heart Catheterization, Orthopedic Surgery, Tonsillectomy Additional Past Surgical History / Comment(s): cataract implants, colonoscopy/polypectomy-benign,lt knee arthroscopy, rt wrist Past Anesthesia/Blood Transfusion Reactions: No Reported Reaction Additional Past Anesthesia/Blood Transfusion Reaction / Comment(s): clausterphobia Past Psychological History: No Psychological Hx Reported Smoking Status: Never smoker Past Alcohol Use History: None Reported Past Drug Use History: None Reported - Past Family History Father Family Medical History: Congestive Heart Failure (CHF) Mother Family Medical History: CVA/TIA Additional Family Medical History / Comment(s): grandmother has cervical cancer <Uzair Ruth - Last Filed: 10/13/23 12:30> General Exam Limitations: altered mental status General appearance: alert, in no apparent distress Head exam: Present: atraumatic, normocephalic, normal inspection Eye exam: Present: normal appearance, PERRL, EOMI. Absent: scleral icterus, co njunctival injection, periorbital swelling ENT exam: Present: normal exam, mucous membranes moist Neck exam: Present: normal inspection. Absent: tenderness, meningismus, lymphadenopathy Respiratory exam: Present: normal lung sounds bilaterally. Absent: respiratory distress, wheezes, rales, rhonchi, stridor Cardiovascular Exam: Present: regular rate, normal rhythm, normal heart sounds. Absent: systolic murmur, diastolic murmur, rubs, gallop, clicks GI/Abdominal exam: Present: soft, normal bowel sounds. Absent: distended, tenderness, guarding, rebound, rigid Extremities exam: Present: normal inspection, full ROM, normal capillary refill. Absent: tenderness, pedal edema, joint swelling, calf tenderness Back exam: Present: normal inspection Neurological exam: Present: alert, oriented X3, CN II-XII intact Psychiatric exam: Present: normal affect, normal mood Skin exam: Present: warm, dry, intact, normal color. Absent: rash <Uzair Ruth - Last Filed: 10/13/23 12:30> Course <Uzair Ruth - Last Filed: 10/13/23 12:30> Vital Signs 10/13/23 10:28 Temperature 97.6 F Pulse Rate 97 Respiratory 20 Rate Blood Pressure 193/69 O2 Sat by Pulse 98 Oximetry - Reevaluation(s) Reevaluation #1: 10/13/23 12:31 Medical records reviewed (Uzair Ruth) Reevaluation #2: 10/13/23 12:31 Medically cleared for psychiatric evaluation (Uzair Ruth) Medical Decision Making - Lab Data Result diagrams: 10/13/23 11:12 10/13/23 11:12 - EKG Data -: EKG Interpreted by Me (EKG is sinus 89 RI 200 QRS 86 QTc 422) <Uzair Ruth - Last Filed: 10/13/23 12:30> - Lab Data Result diagrams: 10/13/23 11:12 10/13/23 11:12 <Jamie Hood - Last Filed: 10/13/23 17:41> - Medical Decision Making Was pt. sent in by a medical professional or institution (, PA, INCINERATOR PLANT LABORER, urgent care, hospital, or [facility]...) When possible be specific @ -No Did you speak to anyone other than the patient for history (EMS, parent, family, police, friend...)? What history was obtained from this source @ -No Did you review nursing and triage notes (agree or disagree)? Why? @ -I reviewed and agree with nursing and triage notes Were old charts reviewed (outside hosp., previous admission, EMS record, old EKG, old radiological studies, urgent care reports/EKG's, [facility] records)? Report findings @ -No old charts were reviewed Differential Diagnosis (chest pain, altered mental status, abdominal pain women, abdominal pain men, vaginal bleeding, weakness, fever, dyspnea, syncope, headache, dizziness, GI bleed, back pain, seizure, CVA, palpatations, mental health, musculoskeletal)? @ -Differential Mental Health Depression, anxiety, bipolar, psychosis, schizophrenia, borderline personality, situational depression, adjustment disorder, behavioral disorder, brain tumor, malingering, substance abuse, encephalopathy, medication reaction, dementia, hypothyroidism, degenerative neurologic disorder, lupus.... This is not meant to be all-inclusive list EKG interpreted by me (3pts min.). @ -As above X-rays interpreted by me (1pt min.). @ -None done CT interpreted by me (1pt min.). @ -None done U/S interpreted by me (1pt. min.). @ -None done What testing was considered but not performed or refused? (CT, X-rays, U/S, labs)? Why? @ -None What meds were considered but not given or refused? Why? @ -None Did you discuss the management of the patient with other professionals (professionals i.e. , PA, INC[employer]ATOR [employer]ANT LABORER, lab, RT, psych nurse, social and human services assistant, bulk tank car unloader, teacher, chief sustainability officer, heel caser)? Give summary @ -Case discussed with [facility] psychiatric nurse with plans for transfer to geriatric psychiatric facility Was smoking cessation discussed for >3mins.? @ -No Was critical care preformed (if so, how long)? @ -No Were there social determinants of health that impacted care today? How? (Homelessness, low income, unemployed, alcoholism, drug addiction, transportation, low edu. Level, literacy, decrease access to med. care, snf, rehab)? @ -No Was there de-escalation of care discussed even if they declined (Discuss DNR or withdrawal of care, Hospice)? DNR status @ -No What co-morbidities impacted this encounter? (DM, HTN, Smoking, COPD, CAD, Cancer, CVA, ARF, Chemo, Hep., AIDS, mental health diagnosis, sleep apnea, morbid obesity)? @ -None Was patient admitted / discharged? Hospital course, mention meds given and route, prescriptions, significant lab abnormalities, going to OR and other pertinent info. @ -Patient reevaluated by myself. Patient resting comfortably in bed. Patient does have paranoid thoughts. Positive clinical certificate completed. Undiagnosed new problem with uncertain prognosis? @ -No Drug Therapy requiring intensive monitoring for toxicity (Heparin, Nitro, Insulin, Cardizem)? @ -No Were any procedures done? @ -No Diagnosis/symptom? @ -Psychosis Acute, or Chronic, or Acute on Chronic? @ -Acute Uncomplicated (without systemic symptoms) or Complicated (systemic symptoms)? @ -Default Side effects of treatment? @ -No Exacerbation, Progression, or Severe Exacerbation? @ -No Poses a threat to life or bodily function? How? (Chest pain, USA, LA, pneumonia, PE, COPD, DKA, ARF, appy, cholecystitis, CVA, Diverticulitis, Homicidal, Suicidal, threat to staff... and all critical care pts) @ -No (Jamie Hood) - Lab Data Lab Results 10/13/23 10/13/23 10/13/23 Range/Units 11:12 11:12 11:12 WBC 8.0 (3.8-10.6) k/uL RBC 4.01 (3.80-5.40) m/uL Hgb 12.9 (11.4-16.0) gm/dL Hct 38.3 (34.0-46.0) % MCV 95.4 (80.0-100.0) fL MCH 32.2 (25.0-35.0) pg MCHC 33.7 (31.0-37.0) g/dL RDW 14.0 (11.5-15.5) % Plt Count 291 (150-450) k/uL MPV 8.0 Neutrophils % 72 % Lymphocytes % 19 % Monocytes % 4 % Eosinophils % 3 % Basophils % 1 % Neutrophils # 5.7 (1.3-7.7) k/uL Lymphocytes # 1.5 (1.0-4.8) k/uL Monocytes # 0.3 (0-1.0) k/uL Eosinophils # 0.2 (0-0.7) k/uL Basophils # 0.0 (0-0.2) k/uL Sodium 129 L (137-145) mmol/L Potassium 4.3 (3.5-5.1) mmol/L Chloride 96 L (98-107) mmol/L Carbon Dioxide 23 (22-30) mmol/L Anion Gap 10 mmol/L BUN 17 (7-17) mg/dL Creatinine 0.64 (0.52-1.04) mg/dL Est GFR (CKD-EPI)AfAm >90 (>60 ml/min/1.73 sqM) Est GFR (CKD-EPI)NonAf 85 (>60 ml/min/1.73 sqM) Glucose 98 (74-99) mg/dL Calcium 9.9 (8.4-10.2) mg/dL Phosphorus 4.3 (2.5-4.5) mg/dL Magnesium 2.0 (1.6-2.3) mg/dL Total Bilirubin 0.7 (0.2-1.3) mg/dL AST 34 (14-36) U/L ALT 20 (4-34) U/L Alkaline Phosphatase 40 (38-126) U/L Total Protein 7.5 (6.3-8.2) g/dL Albumin 4.6 (3.5-5.0) g/dL Urine Color Urine Appearance (Clear) Urine pH (5.0-8.0) Ur Specific [place] (1.001-1.035) Urine Protein (Negative) Urine Glucose (UA) (Negative) Urine Ketones (Negative) Urine Blood (Negative) Urine Nitrite (Negative) Urine Bilirubin (Negative) Urine Urobilinogen (<2.0) mg/dL Ur Leukocyte Esterase (Negative) Urine RBC (0-5) /hpf Urine WBC (0-5) /hpf Ur Squamous Epith Cells (0-4) /hpf Hyaline Casts (0-2) /lpf Urine Mucus (None) /hpf Salicylates 5.2 mg/dL Urine Opiates Screen Not Detected (NotDetected) Ur Oxycodone Screen Not Detected (NotDetected) Urine Methadone Screen Not Detected (NotDetected) Acetaminophen <10.0 ug/mL Ur Barbiturates Screen Not Detected (NotDetected) U Tricyclic Antidepress Not Detected (NotDetected) Ur Phencyclidine Scrn Not Detected (NotDetected) Ur Amphetamines Screen Not Detected (NotDetected) U Methamphetamines Scrn Not Detected (NotDetected) U Benzodiazepines Scrn Not Detected (NotDetected) Urine Cocaine Screen Not Detected (NotDetected) U Marijuana (THC) Screen Not Detected (NotDetected) Serum Alcohol <10 mg/dL 10/13/23 Range/Units 11:12 WBC (3.8-10.6) k/uL RBC (3.80-5.40) m/uL Hgb (11.4-16.0) gm/dL Hct (34.0-46.0) % MCV (80.0-100.0) fL MCH (25.0-35.0) pg MCHC (31.0-37.0) g/dL RDW (11.5-15.5) % Plt Count (150-450) k/uL MPV Neutrophils % % Lymphocytes % % Monocytes % % Eosinophils % % Basophils % % Neutrophils # (1.3-7.7) k/uL Lymphocytes # (1.0-4.8) k/uL Monocytes # (0-1.0) k/uL Eosinophils # (0-0.7) k/uL Basophils # (0-0.2) k/uL Sodium (137-145) mmol/L Potassium (3.5-5.1) mmol/L Chloride (98-107) mmol/L Carbon Dioxide (22-30) mmol/L Anion Gap mmol/L BUN (7-17) mg/dL Creatinine (0.52-1.04) mg/dL Est GFR (CKD-EPI)AfAm (>60 ml/min/1.73 sqM) Est GFR (CKD-EPI)NonAf (>60 ml/min/1.73 sqM) Glucose (74-99) mg/dL Calcium (8.4-10.2) mg/dL Phosphorus (2.5-4.5) mg/dL Magnesium (1.6-2.3) mg/dL Total Bilirubin (0.2-1.3) mg/dL AST (14-36) U/L ALT (4-34) U/L Alkaline Phosphatase (38-126) U/L Total Protein (6.3-8.2) g/dL Albumin (3.5-5.0) g/dL Urine Color Colorless Urine Appearance Clear (Clear) Urine pH 6.5 (5.0-8.0) Ur Specific [place] 1.008 (1.001-1.035) Urine Protein Negative (Negative) Urine Glucose (UA) Negative (Negative) Urine Ketones Negative (Negative) Urine Blood Negative (Negative) Urine Nitrite Negative (Negative) Urine Bilirubin Negative (Negative) Urine Urobilinogen <2.0 (<2.0) mg/dL Ur Leukocyte Esterase Trace H (Negative) Urine RBC 1 (0-5) /hpf Urine WBC 5 (0-5) /hpf Ur Squamous Epith Cells <1 (0-4) /hpf Hyaline Casts 1 (0-2) /lpf Urine Mucus Rare H (None) /hpf Salicylates mg/dL Urine Opiates Screen (NotDetected) Ur Oxycodone Screen (NotDetected) Urine Methadone Screen (NotDetected) Acetaminophen ug/mL Ur Barbiturates Screen (NotDetected) U Tricyclic Antidepress (NotDetected) Ur Phencyclidine Scrn (NotDetected) Ur Amphetamines Screen (NotDetected) U Methamphetamines Scrn (NotDetected) U Benzodiazepines Scrn (NotDetected) Urine Cocaine Screen (NotDetected) U Marijuana (THC) Screen (NotDetected) Serum Alcohol mg/dL Disposition <Uzair Ruth - Last Filed: 10/13/23 12:30> Is patient prescribed a controlled substance at d/c from ED?: No Time of Disposition: 17:41 <Jamie Hood - Last Filed: 10/13/23 17:41> Clinical Impression: Psychosis Disposition: TRANSFER TO PSYCH HOSP/UNIT Referrals: Jayson Hu DO [Primary Care Provider] - 1-2 days
[2023-10-13 11:21] LABS: Basophils % (A) 1 %; Eosinophils # (A) 0.2 k/uL (0-0.7); Eosinophils % (A) 3 %; HCT 38.3 % (34.0-46.0); HGB 12.9 gm/dL (11.4-16.0); Lymphocytes # (A) 1.5 k/uL (1.0-4.8); Lymphocytes % (A) 19 %; MCH 32.2 pg (25.0-35.0); MCHC 33.7 g/dL (31.0-37.0); MCV 95.4 fL (80.0-100.0); Monocytes # (A) 0.3 k/uL (0-1.0); Monocytes % (A) 4 %; Neutrophils # (A) 5.7 k/uL (1.3-7.7); Neutrophils % (A) 72 %; Platelet Count 291 k/uL (150-450); RBC 4.01 m/uL (3.80-5.40)
--- NOTE | 2023-10-13 11:32 | XR ---
EXAMINATION TYPE: XR chest 2V DATE OF EXAM: 10/13/2023 COMPARISON: 04/04/2021 TECHNIQUE: PA and lateral views submitted. HISTORY: Shortness of breath FINDINGS: The lungs are clear and there is no pneumothorax, pleural effusion, or focal pneumonia. Heart size normal and no overt failure. Osseous structures demonstrate hypertrophic and degenerative changes of the spine. Diffuse osteopenia. Tortuosity of the aorta. Underlying emphysema. IMPRESSION: 1. No acute process. 2. COPD.
[2023-10-13 11:40] LABS: Appearance,Urine Clear (Clear); Bilirubin,Urine Negative (Negative); Blood,Urine Negative (Negative); Color,Urine Colorless; Glucose,Urine (UA) Negative (Negative); Hyaline Casts,Urine 1 /lpf (0-2); Ketones,Urine Negative (Negative); Leukocyte Esterase,Urine Trace (Negative); Mucus,Urine Rare /hpf; Nitrite,Urine Negative (Negative); PH, Urine 6.5 (5.0-8.0); Protein,Urine Negative (Negative); RBC,Urine 1 /hpf (0-5); Specific Gravity,Urine 1.008 (1.001-1.035); Squamous Epithelial Cell,Urine <1 /hpf (0-4); Urobilinogen,Urine <2.0 mg/dL (<2.0); WBC,Urine 5 /hpf (0-5)
[2023-10-13 11:44] LABS: Amphetamine Screen,Urine Not Detected (NotDetected); Barbiturate Screen,Urine Not Detected (NotDetected); Benzodiazepines Screen,Urine Not Detected (NotDetected); Cocaine Screen,Urine Not Detected (NotDetected); Methadone Screen, Urine Not Detected (NotDetected); Opiate Screen,Urine Not Detected (NotDetected); Oxycodone Screen, Urine Not Detected (NotDetected); Phencyclidine Screen,Urine Not Detected (NotDetected); Tricyclic Antidepressant,Urine Not Detected (NotDetected); Urn Cannabinoid Scrn Not Detected (NotDetected)
[2023-10-13 11:53] LABS: ALT 20 U/L (4-34); AST 34 U/L (14-36); Acetaminophen <10.0 ug/mL; African American GFR (CKD) >90 (>60 ml/min/1.73 sqM); Albumin 4.6 g/dL (3.5-5.0); Alcohol <10 mg/dL; Alkaline Phosphatase 40 U/L (38-126); Anion Gap 10 mmol/L; Blood Urea Nitrogen 17 mg/dL (7-17); Calcium 9.9 mg/dL (8.4-10.2); Carbon Dioxide 23 mmol/L (22-30); Chloride 96 mmol/L (98-107); Glucose 98 mg/dL (74-99); Non-African American GFR(CKD) 85 (>60 ml/min/1.73 sqM); Phosphorus 4.3 mg/dL (2.5-4.5); Potassium 4.3 mmol/L (3.5-5.1); Salicylate 5.2 mg/dL; Sodium 129 mmol/L (137-145); Total Bilirubin 0.7 mg/dL (0.2-1.3); Total Protein 7.5 g/dL (6.3-8.2)
[2023-10-13] MEDS: ALPRAZolam 0.5 MG TAB PO STA (18:39)
[2023-10-14 10:29] VITALS: BP 135/86; PULSE 95; RESP 18; TEMP 98.1
== END 2023-10-14 10:06 ==
LOC: EC 10:09
DX: F29 Unspecified psychosis not due to a substance or known physiological condition (principal); Z88.0 Allergy status to penicillin; Z91.040 Latex allergy status; Z88.2 Allergy status to sulfonamides; Z88.1 Allergy status to other antibiotic agents; Z88.5 Allergy status to narcotic agent; Z88.6 Allergy status to analgesic agent; Z91.018 Allergy to other foods; Z91.09 Other allergy status, other than to drugs and biological substances; Z11.52 Encounter for screening for COVID-19
CPT/HCPCS: 99285 ×2; 82075; 36415; 93005; 80053; 83735; 84100; 85025; 81001; 80306; 80143; 87635; 80179; 71046; G0480; 80320